=== PATIENT | female | born 1995 ===

== ENCOUNTER 2018-03-26 17:15 | Emergency (ER) | payer OTHER ==
[2018-03-26 17:48] VITALS: BP 127/75; PULSE 74; RESP 18; TEMP 98.2; O2SAT 99
[2018-03-26] MEDS ORDERED: Enoxaparin 40 mg Syringe SC STA (18:03)
--- NOTE | 2018-03-26 18:06 | C.PDOC ---
History Of Present Illness 22 yo female come in for evaluation of left leg pain gradually developed for past month. Pt reports, " pain starts from back of my left ankle and radiating up to back of knee and left hip". Pt reports, pain worse at night time, associated with tingling sensation over Left leg. Otherwise, pt denies known direct trauma or injury, fever, chills, CP, SOB, dyspnea, palpitation, cough, abd. pain, N/V, UTI sx, denies saddle anesthesia, incontinence, denies weakness to Left leg. Pt admits, was seen by PMD last week due to same complaint, received Rx: Flexeril, Naproxen without improvement. Pt admits, takes BCP " for many years". Ambulate to ED for evaluation, not in any apparent distress. Time Seen by Provider: 03/26/18 17:22 Chief Complaint (Nursing): Lower Extremity Problem/Injury History Per: Patient Past Medical History Reviewed: Historical Data, Nursing Documentation, Vital Signs Vital Signs: Last Vital Signs Temp 98.2 F 03/26/18 17:44 Pulse 74 03/26/18 17:44 Resp 18 03/26/18 17:44 BP 127/75 03/26/18 17:44 Pulse Ox 99 03/26/18 17:44 - Medical History PMH: Anxiety Family History: States: Unknown Family Hx - Social History Hx Tobacco Use: No (quit 6 mo ago) Hx Alcohol Use: No Hx Substance Use: No Review Of Systems Except As Marked, All Systems Reviewed And Found Negative. Constitutional: Negative for: Fever, Chills ENT: Negative for: Throat Pain Cardiovascular: Negative for: Chest Pain, Palpitations, Orthopnea, Edema, Light Headedness Respiratory: Negative for: Cough, Shortness of Breath, Wheezing Gastrointestinal: Negative for: Nausea, Vomiting, Abdominal Pain Musculoskeletal: Positive for: Leg Pain Skin: Negative for: Rash, Bruising Neurological: Negative for: Weakness, Numbness, Headache, Dizziness Physical Exam - Physical Exam Appears: Well, Non-toxic, No Acute Distress Skin: Normal Color, Warm, Dry, No Rash, No Ecchymosis Head: Normacephalic Eye(s): bilateral: PERRL Nose: No Flaring, No Discharge Oral Mucosa: Moist, No Drooling Throat: No Erythema Neck: Normal ROM, Trachea Midline, Supple Cardiovascular: Rhythm Regular, No Murmur, No JVD, Other ((-) JVD) Respiratory: No Decreased Breath Sounds, No Accessory Muscle Use, No Stridor, No Wheezing Gastrointestinal/Abdominal: Soft, No Tenderness, No Distention, No Guarding Back: No CVA Tenderness Extremity: Normal ROM (LLE), Tenderness (mild over Left Achilles. No deformity, no skin changes.), Calf Tenderness (Left), Capillary Refill (ls than 2sec to Left foot), No Deformity, No Swelling Neurological/Psych: Oriented x3, Normal Speech, No Normal Motor, No Normal Sensation, No Normal Reflexes ED Course And Treatment O2 Sat by Pulse Oximetry: 99 Pulse Ox Interpretation: Normal Progress Note: On re-eavluation, pt is afebnrile, hemodynamical stable. Non- toxic. Ambulatory in ED with stable gait. PulsOEx 99% RA. ENT: no acute findings. Lungs: CTA B/L, BS equal B/L. CVS: (+)S1S2, reg. (-) murmur. Left LE: mild tenderness over Achilles, (-) Osorio. Mild left calf tenderness, no edema, no palpable cordsm no erythema. FAROM, no neurovascular deficits. NO calf tenderness, no skin changes. Back: (-) CVA tenderness. Neurologicaly intact. Pt has clinical findings c/w diffuse posterior left leg tenderness, (+ ) mild left calf tenderness r/o DVT. Duppler US is note available at [facility] at present time. Pt advised return to ED tomorrow for test. Pt understand and agrees with plan. STable for discharge now. Disposition Counseled Patient/Family Regarding: Studies Performed, Diagnosis, Need For Followup - Disposition Disposition: HOME/ ROUTINE Disposition Time: 18:04 Condition: STABLE Additional Instructions: RETURN TO ED TOMORROW FOR DOPPLER US OF LEFT LEG RULE OUT DVT Instructions: Deep Vein Thrombosis (Blood Clots in the Legs) Forms: [facility] (Georgian), Work Excuse - Clinical Impression Clinical Impression: Cramps of left lower extremity
[2018-03-26] MEDS ORDERED: Enoxaparin 80 mg Syringe ONE (18:18)
== END 2018-03-26 18:27 | disposition home or self-care (01) ==
LOC: C.ER 17:15
DX: R25.2 Cramp and spasm (principal)
CPT/HCPCS: 96372; 99284; J1650

== ENCOUNTER 2018-03-27 08:47 | Emergency (ER) | payer OTHER ==
[2018-03-27 09:00] VITALS: BP 125/84; PULSE 73; RESP 18; TEMP 98.4; O2SAT 98
--- NOTE | 2018-03-27 10:47 | C.PDOC ---
History Of Present Illness 22 y/o female presents to the ED for evaluation of left calf pain for 3 weeks. Patient was seen here last night and instructed to return for Doppler US to rule out DVT. Otherwise she denies any SOB, palpitations, chest pain, numbness, tingling, or other complaints. She reports applying bengay vigorously to the calf, which has only worsened her pain. Time Seen by Provider: 03/27/18 09:20 Chief Complaint (Nursing): Lower Extremity Problem/Injury History Per: Patient History/Exam Limitations: no limitations Onset/Duration Of Symptoms: Days Current Symptoms Are (Timing): Still Present Past Medical History Reviewed: Historical Data, Nursing Documentation, Vital Signs Vital Signs: Last Vital Signs Temp 98.4 F 03/27/18 08:57 Pulse 73 03/27/18 08:57 Resp 18 03/27/18 08:57 BP 125/84 03/27/18 08:57 Pulse Ox 98 03/27/18 10:47 - Medical History PMH: Anxiety, Asthma Family History: States: Unknown Family Hx - Social History Hx Tobacco Use: No (quit 6 mo ago) Hx Alcohol Use: No Hx Substance Use: No - Immunization History Hx Tetanus Toxoid Vaccination: No Hx Influenza Vaccination: Yes Hx Pneumococcal Vaccination: No Review Of Systems Except As Marked, All Systems Reviewed And Found Negative. Constitutional: Negative for: Fever Cardiovascular: Negative for: Chest Pain, Palpitations Respiratory: Negative for: Shortness of Breath Gastrointestinal: Negative for: Nausea, Vomiting Musculoskeletal: Positive for: Leg Pain (left calf) Skin: Negative for: Rash, Lesions Neurological: Negative for: Weakness, Numbness, Incoordination Physical Exam - Physical Exam Appears: Well, Non-toxic, No Acute Distress Skin: Warm, Dry, No Rash Head: Atraumatic, Normacephalic Eye(s): bilateral: Normal Inspection Oral Mucosa: Moist Neck: Normal ROM Chest: Symmetrical, No Deformity, No Tenderness Cardiovascular: Rhythm Regular, No Murmur Respiratory: Normal Breath Sounds, No Rales, No Rhonchi, No Wheezing Extremity: Normal ROM, Calf Tenderness (left), No Deformity, Other (Obese lower extremities bilaterally, symmetrical, no edema, (+) Nirmala's sign on the left) Pulses: Left Dorsalis Pedis: Normal, Right Dorsalis Pedis: Normal Neurological/Psych: Oriented x3, Normal Speech, Normal Cranial Nerves, Normal Motor, Normal Sensation ED Course And Treatment O2 Sat by Pulse Oximetry: 98 (RA) Pulse Ox Interpretation: Normal - Other Rad b/l leg doppler US X-Ray: Read By Radiologist (no DVT's b/l legs) Medical Decision Making Medical Decision Making: Impression: Sent to r/o DVT Plan: * vascular study ordered Informed patient of negative doppler US. Final Impression: muscle strain L calf area no dvt Disposition Doctor Will See Patient In The: Office Counseled Patient/Family Regarding: Studies Performed, Diagnosis, Need For Followup - Disposition Referrals: Emily Valdivia MD [Staff Provider] - Disposition: HOME/ ROUTINE Disposition Time: 10:47 Condition: GOOD Additional Instructions: Doppler US exam today is NEGATIVE for DVT of both legs continue ice packs to the affected leg area 1/2 hour per hour, nothing hot Motrin/Advil 400-600 mg every 6 hours as needed Follow-up w Dr. Valdivia as needed. Instructions: Lower Extremity Muscle Strain Forms: [facility] (Latvian) - POA Present On Arrival: None - Clinical Impression Clinical Impression: Strain of calf muscle - Scribe Statement The provider has reviewed the documentation as recorded by the Scribe (Nataliia Hair) Provider Attestation: All medical record entries made by the Scribe were at my direction and personally dictated by me. I have reviewed the chart and agree that the record accurately reflects my personal performance of the history, physical exam, medical decision making, and the department course for this patient. I have also personally directed, reviewed, and agree with the discharge instructions and disposition.
--- NOTE | 2018-03-28 13:25 | VASCLAB ---
Date of service: 03/27/2018 PROCEDURE: Lower Extremity Venous Duplex Exam. HISTORY: Pain in limb, r/o dvt PRIORS: None. TECHNIQUE: Bilateral common femoral, femoral, popliteal and posterior tibial, peroneal and great saphenous veins were evaluated. Flow was assessed with color Doppler, compressibility, assessment of phasic flow and augmentation response. Report prepared by Darren Murray, NENA, RVT FINDINGS: RIGHT: 1. Common Femoral Vein: 1.1. Compressibility - Fully compressible: Thrombus - None : Flow - Phasic: Augmentation -Normal: Reflux - None. 2. Femoral Vein: 2.1. Compressibility - Fully compressible: Thrombus - None : Flow - Phasic: Augmentation -Normal: Reflux - None. 3. Popliteal Vein: 3.1. Compressibility - Fully compressible: Thrombus - None : Flow - Phasic: Augmentation -Normal: Reflux - None. 4. Posterior Tibial Vein: 4.1. Compressibility - Fully compressible: Thrombus - None: Flow - Phasic: Augmentation -Normal: Reflux - None. 5. Peroneal Vein: 5.1. Compressibility - Fully compressible: Thrombus - None: Flow - Phasic: Augmentation -Normal: Reflux - None. 6. Great Saphenous Vein: 6.1. Compressibility - Fully compressible: Thrombus - None: Flow - Phasic: Augmentation - Normal: Reflux - None. LEFT: 1. Common Femoral Vein: 1.1. Compressibility - Fully compressible: Thrombus - None: Flow - Phasic: Augmentation -Normal: Reflux - None. 2. Femoral Vein: 2.1. Compressibility - Fully compressible: Thrombus - None: Flow - Phasic: Augmentation -Normal: Reflux - None. 3. Popliteal Vein: 3.1. Compressibility - Fully compressible: Thrombus - None : Flow - Phasic: Augmentation -Normal: Reflux - None. 4. Posterior Tibial Vein: 4.1. Compressibility - Fully compressible: Thrombus - None: Flow - Phasic: Augmentation -Normal: Reflux - None. 5. Peroneal Vein: 5.1. Compressibility - Fully compressible: Thrombus - None: Flow - Phasic: Augmentation -Normal: Reflux - None. 6. Great Saphenous Vein: 6.1. Compressibility - Fully compressible: Thrombus - None: Flow - Phasic: Augmentation - Normal: Reflux - None. OTHER FINDINGS: Right: None significant. Left: None significant. IMPRESSION: Right: No evidence of deep or superficial vein thrombosis of the right lower extremity. Normal valve function noted of the right side. Left: No evidence of deep or superficial vein thrombosis of the left lower extremity. Normal valve function noted of the left side.
== END 2018-03-27 10:53 | disposition home or self-care (01) ==
LOC: C.ER 08:47
DX: S86.912A Strain of unspecified muscle(s) and tendon(s) at lower leg level, left leg, initial encounter (principal); X58.XXXA Exposure to other specified factors, initial encounter

== ENCOUNTER 2018-04-24 21:27 | Emergency (ER) | payer OTHER ==
[2018-04-24] MEDS ORDERED: Sodium Chloride 0.9% 1,000 ML IV ONE (21:54)
--- NOTE | 2018-04-24 22:00 | C.PDOC ---
History Of Present Illness 22 y/o female presents to the ED for evaluation of fever for 4 days. Patient notes she started to not feel well Sunday night. Sunday she started developing diarrhea and has been having a couple of episodes of loose stool each day. Today it became a squaxin green color. No nausea or vomiting. Patient reports a decreased appetite though she is able to eat and drink. Also reports cough. Denies any associated dysuria, incontinence, hematuria, or URI symptoms. Her daughter has an ear infection but otherwise no sick contacts. No recent travel. No recent antibiotic use. Time Seen by Provider: 04/24/18 21:46 Chief Complaint (Nursing): Fever History Per: Patient History/Exam Limitations: no limitations Onset/Duration Of Symptoms: Days Current Symptoms Are (Timing): Still Present Sick Contacts (Context): None Past Medical History Reviewed: Historical Data, Nursing Documentation, Vital Signs Vital Signs: Last Vital Signs Temp 101.5 F H 04/24/18 21:39 Pulse 99 H 04/24/18 21:39 Resp 20 04/24/18 21:39 BP 138/93 H 04/24/18 21:39 Pulse Ox 97 04/24/18 22:01 - Medical History PMH: Anxiety, Asthma Family History: States: Unknown Family Hx - Social History Hx Tobacco Use: No (quit 6 mo ago) Hx Alcohol Use: No Hx Substance Use: No - Immunization History Hx Tetanus Toxoid Vaccination: No Hx Influenza Vaccination: Yes Hx Pneumococcal Vaccination: No Review Of Systems Constitutional: Negative for: Fever, Chills ENT: Negative for: Ear Pain, Nose Congestion, Throat Pain Cardiovascular: Negative for: Chest Pain Respiratory: Positive for: Cough. Negative for: Shortness of Breath, Sputum Gastrointestinal: Positive for: Diarrhea, Other (Decreased appetite). Negative for: Nausea, Vomiting Genitourinary: Negative for: Dysuria, Frequency, Incontinence, Hematuria Neurological: Negative for: Weakness, Numbness, Headache Physical Exam - Physical Exam Appears: Non-toxic, No Acute Distress Skin: Normal Color, Warm, Dry Head: Atraumatic, Normacephalic Eye(s): bilateral: Normal Inspection, PERRL, EOMI Ear(s): Bilateral: Normal Nose: Normal Oral Mucosa: Moist Throat: Normal, No Erythema, No Exudate Neck: Normal ROM, Supple Chest: Symmetrical Cardiovascular: Rhythm Regular, No Murmur Respiratory: Normal Breath Sounds (clear bilaterally to auscultation), No Rales , No Rhonchi, No Wheezing, Other (Mild cough noted) Gastrointestinal/Abdominal: Soft, No Tenderness, No Distention Back: Normal Inspection, No CVA Tenderness Extremity: Bilateral: Atraumatic, Normal Color And Temperature, Normal ROM Neurological/Psych: Oriented x3, Normal Speech ED Course And Treatment - Laboratory Results Result Diagrams: 04/24/18 22:27 04/24/18 22:27 Lab Interpretation: Normal O2 Sat by Pulse Oximetry: 97 (RA) Pulse Ox Interpretation: Normal - Radiology CXR: Interpreted by Me CXR Interpretation: Yes: No Acute Disease Progress Note: Blood work and urine sent. Chest x-ray obtained and reviewed. Patient started on IVF hydration and given 600mg PO Motrin. Reevaluation Time: 23:04 Reassessment Condition: Improved Disposition Counseled Patient/Family Regarding: Studies Performed, Diagnosis, Need For Followup - Disposition Referrals: Emily Valdivia MD [Staff Provider] - Disposition: HOME/ ROUTINE Disposition Time: 23:05 Condition: IMPROVED Additional Instructions: Encourage fluids and keep your diet bland. Take a probiotic daily. Instructions: Diarrhea in Adolescents and Adults, [place] Diet, Fever, Adult (DC) Forms: [facility] (Cymro) - Clinical Impression Clinical Impression: Fever, Diarrhea - Scribe Statement The provider has reviewed the documentation as recorded by the Gemini Hair Provider Attestation: All medical record entries made by the Gildardoibe were at my direction and personally dictated by me. I have reviewed the chart and agree that the record accurately reflects my personal performance of the history, physical exam, medical decision making, and the department course for this patient. I have also personally directed, reviewed, and agree with the discharge instructions and disposition.
[2018-04-24 22:22] LABS: HCG,QUALITATIVE URINE NEGATIVE (NEGATIVE)
[2018-04-24] MEDS ORDERED: Sodium Chloride 0.9% 1,000 ML ONE (22:24)
[2018-04-24 22:26] LABS: SQUAMOUS EPITHIAL 16 /hpf (0-5); URINE BILIRUBIN NEGATIVE (NEGATIVE); URINE BLOOD 2+ (NEGATIVE); URINE CLARITY Hazy (Clear); URINE COLOR Yellow (YELLOW); URINE GLUCOSE (UA) NORMAL (Normal); URINE LEUKOCYTE ESTERASE TRACE Leu/uL (Negative); URINE PROTEIN NEGATIVE (NEGATIVE)
[2018-04-24 22:31] LABS: BASO % 0.3 % (0.0-2.0); EOS # 0.2 K/uL (0.0-0.7); EOS % 1.8 % (0.0-4.0); HEMOGLOBIN 14.2 g/dL (11.0-16.0); LYMPH % 23.8 % (20.0-40.0); MEAN CELL VOLUME 89.4 fL (81.0-99.0); MEAN CORPUSCULAR HGB CONC 34.6 g/dL (33.0-37.0); MEAN PLATELET VOLUME 7.1 fL (7.2-11.7); MONO # 0.6 K/uL (0.0-0.8); MONO % 7.4 % (0.0-10.0); NEUT # 5.7 K/uL (1.8-7.0); NEUT % 66.7 % (50.0-75.0); NRBC % 0.1 % (0.0-2.0); RBC 4.6 Mil/uL (3.80-5.20); RED CELL DISTRIBUTION WIDTH 13.4 % (11.5-14.5); WHITE BLOOD COUNT 8.5 K/uL (4.8-10.8)
[2018-04-24 22:54] LABS: ALB/GLOB RATIO 1.3 (1.0-2.1); ALBUMIN 4.5 g/dL (3.5-5.0); ALT/SGPT 24 U/L (9-52); AST/SGOT 21 U/L (14-36); BLOOD UREA NITROGEN 15 mg/dL (7-17); GFR NON-AFRICAN AMERICAN > 60
[2018-04-24] MEDS ORDERED: Albuterol 0.083% Inhal Sol (2.5 mg/3 mL) UD INH ONE (23:31)
[2018-04-24] MEDS ORDERED: Albuterol 0.083% Inhal Sol (2.5 mg/3 mL) UD ONE (23:37)
[2018-04-24 23:40] VITALS: BP 109/70; PULSE 92; RESP 22; TEMP 99.2; O2SAT 99
--- NOTE | 2018-04-25 08:30 | RAD ---
Chest x-ray two views History: Shortness of breath. Comparison: None available. Findings: Patchy increased markings at the right lung base laterally. Clinical correlation. Bibasilar breast and nipple shadows. Heart size within normal limits. Degenerative changes in the spine. Impression: Patchy increased markings at the lateral aspect of the right lung base which may represent subtle infiltrate. Clinical correlation.
== END 2018-04-25 00:09 | disposition home or self-care (01) ==
LOC: C.ER 21:27
DX: R50.9 Fever, unspecified (principal); R19.7 Diarrhea, unspecified
CPT/HCPCS: 71046; 80053; 81001; 84703; 85025; 87804; 96360; 99285; J7030

== ENCOUNTER 2018-04-27 17:03 | Inpatient (IN) | payer OTHER ==
[2018-04-27] MEDS ORDERED: Sodium Chloride 0.9% 1,000 ML IV ONE (17:48)
[2018-04-27] MEDS ORDERED: Albuterol 0.083% Inhal Sol (2.5 mg/3 mL) UD IH STA (17:51)
[2018-04-27 18:08] LABS: BASO % 0.4 % (0.0-2.0); HEMOGLOBIN 15.3 g/dL (11.0-16.0); LYMPH # 1.5 K/uL (1.0-4.3); LYMPH % 13.6 % (20.0-40.0); MEAN CELL VOLUME 89.9 fL (81.0-99.0); MEAN CORPUSCULAR HEMOGLOBIN 31.5 pg (27.0-31.0); MEAN CORPUSCULAR HGB CONC 35.1 g/dL (33.0-37.0); MEAN PLATELET VOLUME 7.4 fL (7.2-11.7); MONO # 0.5 K/uL (0.0-0.8); MONO % 4.7 % (0.0-10.0); NEUT % 81.3 % (50.0-75.0); NRBC % 0.1 % (0.0-2.0); RBC 4.84 Mil/uL (3.80-5.20); RED CELL DISTRIBUTION WIDTH 13.1 % (11.5-14.5); WHITE BLOOD COUNT 11.1 K/uL (4.8-10.8)
[2018-04-27 18:15] LABS: VENOUS BLOOD GAS BASE EXCESS -10.3 mmol/L (0.0-2.0); VENOUS BLOOD GAS PCO2 37 mmHg (40-60); VENOUS BLOOD GAS PO2 42 mm/Hg (30-55); VENOUS BLOOD PH 7.25 (7.32-7.43)
--- NOTE | 2018-04-27 18:18 | C.PDOC ---
History Of Present Illness Patient presents to ED c/o productive cough, wheezing, SOB as well as epigastric abdominal pain, nausea and vomiting since Sunday. Patient was seen in the ER on 04/24, diagnosed with R sided pneumonia and given Rx for Levaquin. Patient states she has been unable to keep antibiotics down, and symptoms have continued. PMHx of asthma Time Seen by Provider: 04/27/18 17:36 Chief Complaint (Nursing): Shortness Of Breath History Per: Patient History/Exam Limitations: no limitations Onset/Duration Of Symptoms: Days (6 ) Current Symptoms Are (Timing): Worse Initiating Event: Upper Respiratory Illness Current Respiratory Medications: See Home Med List Severity: Moderate Past Medical History Reviewed: Historical Data, Nursing Documentation, Vital Signs Vital Signs: Last Vital Signs Temp 101.2 F H 04/27/18 17:26 Pulse 132 H 04/27/18 17:26 Resp 28 H 04/27/18 17:26 BP 141/98 H 04/27/18 17:26 Pulse Ox 96 04/27/18 18:33 - Medical History PMH: Anxiety, Asthma Family History: States: No Known Family Hx - Social History Hx Tobacco Use: No (quit 6 mo ago) Hx Alcohol Use: Yes Hx Substance Use: No - Immunization History Hx Tetanus Toxoid Vaccination: No Hx Influenza Vaccination: No Hx Pneumococcal Vaccination: No Review Of Systems Constitutional: Positive for: Fever Cardiovascular: Negative for: Chest Pain, Palpitations Respiratory: Positive for: Cough, Shortness of Breath, Wheezing Gastrointestinal: Positive for: Nausea, Vomiting, Abdominal Pain. Negative for : Diarrhea Genitourinary: Negative for: Dysuria, Hematuria Skin: Negative for: Rash Physical Exam - Physical Exam Appears: Non-toxic, In Acute Distress (in moderate discomfort ), Other ( coughing intermittently ) Skin: Normal Color, Warm, Dry Eye(s): bilateral: Normal Inspection Oral Mucosa: Moist Cardiovascular: Rhythm Regular (tachycardic ), No Murmur Respiratory: Accessory Muscle Use (mild), No Rales, Rhonchi (right lower lobe), Wheezing (scant expiratory wheezing) Gastrointestinal/Abdominal: Bowel Sounds, Soft, Tenderness (epigastric mild TTP , (-) McBurney's), No Guarding, No Rebound Extremity: Normal ROM, No Pedal Edema, No Calf Tenderness Neurological/Psych: Oriented x3 ED Course And Treatment - Laboratory Results Result Diagrams: 04/27/18 18:05 04/27/18 18:05 O2 Sat by Pulse Oximetry: 96 Progress Note: Blood work, UA, UPreg, CXR ordered and reviewed. Patient given IV NS bolus, IV zofran, PO tylenol, albuterol neb. 6:45pm- Patient still having cough, fever and vomiting, (+) epigastric abd pain. Blood work, CXR unremarkable. Patient vomited up Tylenol. Patient given IV toradol - will order CT chest/abd/pelvis. Disposition - Disposition Disposition Time: 19:00 Condition: STABLE Forms: [facility] (Belarusian) - Clinical Impression Clinical Impression: Fever, Nausea & vomiting, Cough Physician Patient Turnover Patient Signed Over To: Fidencio Das Handoff Comments: reassessment, CT results
[2018-04-27 18:20] LABS: ALB/GLOB RATIO 1.2 (1.0-2.1); ALBUMIN 4.4 g/dL (3.5-5.0); ALT/SGPT 25 U/L (9-52); AST/SGOT 19 U/L (14-36); BLOOD UREA NITROGEN 12 mg/dL (7-17); CALCIUM 9.3 mg/dl (8.6-10.4); GFR NON-AFRICAN AMERICAN > 60; LIPASE 66 U/L (23-300)
[2018-04-27] MEDS ORDERED: Sodium Chloride 0.9% 1,000 ML ONE (18:20)
[2018-04-27] MEDS ORDERED: Potassium Chloride 20 mEq ER Tab PO STA (18:22)
[2018-04-27 18:35] LABS: HCG,QUALITATIVE URINE NEGATIVE (NEGATIVE)
[2018-04-27] MEDS ORDERED: Potassium Chloride 20 mEq ER Tab PO ONE (18:36)
[2018-04-27 18:40] LABS: SQUAMOUS EPITHIAL 5 /hpf (0-5); URINE BACTERIA OCC (<OCC); URINE BILIRUBIN NEGATIVE (NEGATIVE); URINE BLOOD 1+ (NEGATIVE); URINE CLARITY Hazy (Clear); URINE COLOR Yellow (YELLOW); URINE GLUCOSE (UA) NORMAL (Normal); URINE LEUKOCYTE ESTERASE NEG Leu/uL (Negative); URINE PROTEIN 1+ mg/dL (NEGATIVE); URINE UROBILINOGEN NORMAL mg/dL (0.2-1.0)
[2018-04-27] MEDS ORDERED: cefTRIAXone IV 1 gm in Dextros 50 ML IVPB ONE (20:38)
[2018-04-27] MEDS ORDERED: Azithromycin 500mg/250ML NS 500 MG/250 ML BAG IVPB ONE (20:56)
[2018-04-27] MEDS ORDERED: Azithromycin 500 MG in Sodium Chloride 0.9% 250 ML IVPB ONE (21:00)
[2018-04-27 21:15] LABS: ABG ALLEN TEST POS; ARTERIAL BLOOD GAS HCO3 21.9 mmol/L (21-28); ARTERIAL BLOOD GAS HEMOGLOBIN 12.5 g/dL (11.7-17.4); ARTERIAL BLOOD GAS O2 SAT 98.3 % (95-98); ARTERIAL BLOOD GAS PCO2 28 mm/Hg (35-45); ARTERIAL BLOOD GAS PH 7.44 (7.35-7.45); ARTERIAL BLOOD GAS PO2 94 mm/Hg (80-100); ARTERIAL BLOOD GAS TCO2 19.9 mmol/L (22-28)
--- NOTE | 2018-04-27 23:49 | CP.PCM.HP ---
History of Present Illness - History of Present Illness History of Present Illness: 82-year-old female with PMH of anxiety, asthma comes to ED with complaints of productive cough since 5 days. Cough is associated with wheezing, SOB, epigastric pain, nausea and vomiting. Patient was seen in ER on 04/24 where she was diagnosed with right-sided pneumonia and given Levaquin. Admits she has been unable to keep antibiotics down and symptoms have continued. Past Patient History - Infectious Disease Hx of Infectious Diseases: None - Past Medical History & Family History Past Medical History?: Yes - Past Social History Smoking Status: Never Smoked - CARDIAC Hx Cardiac Disorders: No - PULMONARY Hx Respiratory Disorders: Yes Hx Asthma: Yes - NEUROLOGICAL Hx Neurological Disorder: No - HEENT Hx HEENT Problems: No - RENAL Hx Chronic Kidney Disease: No - ENDOCRINE/METABOLIC Hx Endocrine Disorders: No - HEMATOLOGICAL/ONCOLOGICAL Hx Blood Disorders: No - INTEGUMENTARY Hx Dermatological Problems: No - MUSCULOSKELETAL/RHEUMATOLOGICAL Hx Musculoskeletal Disorders: No - GASTROINTESTINAL Hx Gastrointestinal Disorders: No - GENITOURINARY/GYNECOLOGICAL Hx Genitourinary Disorders: No - PSYCHIATRIC Hx Psychophysiologic Disorder: Yes Hx Anxiety: Yes Hx Substance Use: No - SURGICAL HISTORY Hx Surgeries: Yes Hx Section: Yes Hx Dilation and Curettage: Yes - ANESTHESIA Hx Anesthesia: Yes Hx Anesthesia Reactions: No Hx Malignant Hyperthermia: No Meds Home Medications: Home Medication List Medication Instructions Recorded Confirmed Type Albuterol/Ipratropium [Duoneb 3 3 ml INH RQ6 30 Days neb 05/01/18 Rx mg/0.5 mg (3 ml) UD] levoFLOXacin [Levaquin] 500 mg PO DAILY #10 tab 05/01/18 Rx Allergies/Adverse Reactions: Allergies Allergy/AdvReac Type Severity Reaction Status Date / Time latex Allergy Verified 03/26/18 17:48 ANIMAL FUR Allergy Uncoded 03/26/18 17:48 DUST Allergy Uncoded 03/26/18 17:48 POLLEN Allergy Uncoded 03/26/18 17:48 Results - Vital Signs Recent Vital Signs: Last Vital Signs Temp 98.0 F 04/27/18 22:20 Pulse 84 04/27/18 22:20 Resp 20 04/27/18 22:20 BP 120/71 04/27/18 22:20 Pulse Ox 97 04/27/18 22:20 - Labs Result Diagrams: 05/01/18 07:34 05/01/18 07:13 Labs: Laboratory Results - last 24 hr 04/27/18 04/27/18 04/27/18 18:05 18:05 18:08 WBC 11.1 H RBC 4.84 Hgb 15.3 Hct 43.5 MCV 89.9 MCH 31.5 H MCHC 35.1 RDW 13.1 Plt Count 260 MPV 7.4 Neut % (Auto) 81.3 H Lymph % (Auto) 13.6 L [place] % (Auto) 4.7 Eos % (Auto) 0.0 Baso % (Auto) 0.4 Neut # (Auto) 9.0 H Lymph # (Auto) 1.5 [place] # (Auto) 0.5 Eos # (Auto) 0.0 Baso # (Auto) 0.0 Puncture Site pCO2 pO2 42 HCO3 ABG pH ABG Total CO2 ABG O2 Saturation ABG Base Excess ABG Hemoglobin ABG Carboxyhemoglobin POC ABG HHb (Measured) ABG Methemoglobin Randall Test VBG pH 7.25 L VBG pCO2 37 L VBG HCO3 16.1 VBG Total CO2 17.3 L VBG O2 Sat (Calc) 75.4 H VBG Base Excess -10.3 L VBG Potassium 19.6 H* A-a O2 Difference Respiratory Index Hgb O2 Saturation Glucose 80 Lactate 1.1 FiO2 Crit Value Called To Suzanne sheet metal pattern cutter Crit Value Called By Troy Crit Value Read Back Y Blood Gas Notified Time 1814 Sodium 138 133.0 Potassium 3.1 L Chloride 100 107.0 Carbon Dioxide 20 L Anion Gap 20 BUN 12 Creatinine 0.7 Est GFR ( Amer) > 60 Est GFR (Non-Af Amer) > 60 Random Glucose 104 Calcium 9.3 Total Bilirubin 0.7 AST 19 ALT 25 Alkaline Phosphatase 92 Total Protein 8.3 Albumin 4.4 Globulin 3.8 Albumin/Globulin Ratio 1.2 Lipase 66 Venous Blood Potassium 19.6 H* Urine Color Urine Clarity Urine pH Ur Specific [place] Urine Protein Urine Glucose (UA) Urine Ketones Urine Blood Urine Nitrate Urine Bilirubin Urine Urobilinogen Ur Leukocyte Esterase Urine WBC (Auto) Urine RBC (Auto) Ur Squamous Epith Cells Urine Bacteria Urine HCG, Qual Influenza Typ A,B (EIA) 04/27/18 04/27/18 04/27/18 18:32 19:02 21:13 WBC RBC Hgb Hct MCV MCH MCHC RDW Plt Count MPV Neut % (Auto) Lymph % (Auto) [place] % (Auto) Eos % (Auto) Baso % (Auto) Neut # (Auto) Lymph # (Auto) [place] # (Auto) Eos # (Auto) Baso # (Auto) Puncture Site Lba pCO2 28 L pO2 94 HCO3 21.9 ABG pH 7.44 ABG Total CO2 19.9 L ABG O2 Saturation 98.3 H ABG Base Excess -3.9 L ABG Hemoglobin 12.5 ABG Carboxyhemoglobin 1.2 POC ABG HHb (Measured) 1.7 ABG Methemoglobin 0.9 Randall Test Pos VBG pH VBG pCO2 VBG HCO3 VBG Total CO2 VBG O2 Sat (Calc) VBG Base Excess VBG Potassium A-a O2 Difference 21.0 Respiratory Index 0.2 Hgb O2 Saturation 96.3 Glucose Lactate FiO2 21.0 Crit Value Called To Crit Value Called By Crit Value Read Back Blood Gas Notified Time Sodium Potassium Chloride Carbon Dioxide Anion Gap BUN Creatinine Est GFR ( Amer) Est GFR (Non-Af Amer) Random Glucose Calcium Total Bilirubin AST ALT Alkaline Phosphatase Total Protein Albumin Globulin Albumin/Globulin Ratio Lipase Venous Blood Potassium Urine Color Yellow Urine Clarity Hazy Urine pH 5.0 Ur Specific [place] 1.029 Urine Protein 1+ H Urine Glucose (UA) Normal Urine Ketones 2+ H Urine Blood 1+ H Urine Nitrate Negative Urine Bilirubin Negative Urine Urobilinogen Normal Ur Leukocyte Esterase Neg Urine WBC (Auto) 3 Urine RBC (Auto) 13 H Ur Squamous Epith Cells 5 Urine Bacteria Occ H Urine HCG, Qual Negative Influenza Typ A,B (EIA) Negative for flu a/b
[2018-04-28] MEDS ORDERED: Potassium Chloride 20 mEq ER Tab PO ONE (00:20)
[2018-04-28] MEDS: Albuterol-Ipratrop 3 mg / 0.5 (3 ml) UD INH SCH ×4 (01:16→19:20)
[2018-04-28] MEDS ORDERED: Potassium Chloride 20 mEq/15 ml LIQ UD PO ONE (05:00)
--- NOTE | 2018-04-28 08:57 | RAD ---
Date of service: 04/27/2018 PROCEDURE: CHEST RADIOGRAPH, 1 VIEW HISTORY: Fever, cough COMPARISON: Comparison chest 11/22/2017. FINDINGS: LUNGS: Poor inspiration with low lung volumes, crowded bronchovascular markings and mild atelectasis. The interstitial markings are also increased and coarsened ; rule out sequela of reactive/inflammatory airway disease or viral illness. PLEURA: No pneumothorax or pleural fluid seen. CARDIOVASCULAR: Normal. OSSEOUS STRUCTURES: No significant abnormalities. VISUALIZED UPPER ABDOMEN: Normal. OTHER FINDINGS: None. IMPRESSION: Poor inspiration with low lung volumes, crowded bronchovascular markings and mild atelectasis. The interstitial markings are also increased and coarsened ; rule out sequela of reactive/inflammatory airway disease or viral illness.
[2018-04-28] MEDS: Enoxaparin 40 mg Syringe SC SCH (09:35)
[2018-04-28] MEDS: Pantoprazole 40 mg EC Tab PO SCH (09:35)
[2018-04-28 11:41] LABS: HEMOGLOBIN 13.8 g/dL (11.0-16.0); MEAN CELL VOLUME 89.9 fL (81.0-99.0); MEAN CORPUSCULAR HEMOGLOBIN 31.5 pg (27.0-31.0); MEAN PLATELET VOLUME 7.8 fL (7.2-11.7); RBC 4.37 Mil/uL (3.80-5.20); RED CELL DISTRIBUTION WIDTH 13.4 % (11.5-14.5)
[2018-04-28 11:43] LABS: WHITE BLOOD COUNT 5.5 K/uL (4.8-10.8)
[2018-04-28 12:02] LABS: ALB/GLOB RATIO 1.1 (1.0-2.1); ALBUMIN 3.6 g/dL (3.5-5.0); ALT/SGPT 21 U/L (9-52); AST/SGOT 19 U/L (14-36); BLOOD UREA NITROGEN 9 mg/dL (7-17); CALCIUM 8.9 mg/dl (8.6-10.4); GFR NON-AFRICAN AMERICAN > 60
[2018-04-28] MEDS: Azithromycin 500 MG in Sodium Chloride 0.9% 250 ML IVPB SCH (12:09)
--- NOTE | 2018-04-28 16:58 | CP.PCM.CON ---
<Enrique Danielle - Last Filed: 04/28/18 16:53> History of Present Illness - History of Present Illness History of Present Illness: GI Fellow PGY4, consult note. Lauren Potts is a very pleasant 22yo F with history of asthma, GERD who presents with fever, vomiting, diarrhea. Patient last felt well 1 week ago when she developed a fever after a family BBQ. She does not remember eating any questionable food, and no other people developed similar symptoms that she knows of. She has no recent travel or Abx use. She had multiple episode of non- bloody vomiting and diarrhea. She notes her diarrhea turned green. She has been unable to keep food down. She had abdominal pain 1 week ago, but none now. Today her symptoms are improving, only one episode of emesis after trying liquid potassium. Last BM was yesterday and it was small. PMHx - see above PSHx - 5yrs ago. FMHx - unremarkable SocHx - Occasional etoh use. Denies smoking. 12pt ROS completed and neg except for above. Past Patient History - Infectious Disease Hx of Infectious Diseases: None - Past Medical History & Family History Past Medical History?: Yes - Past Social History Smoking Status: Never Smoked - CARDIAC Hx Cardiac Disorders: No - PULMONARY Hx Respiratory Disorders: Yes Hx Asthma: Yes - NEUROLOGICAL Hx Neurological Disorder: No - HEENT Hx HEENT Problems: No - RENAL Hx Chronic Kidney Disease: No - ENDOCRINE/METABOLIC Hx Endocrine Disorders: No - HEMATOLOGICAL/ONCOLOGICAL Hx Blood Disorders: No - INTEGUMENTARY Hx Dermatological Problems: No - MUSCULOSKELETAL/RHEUMATOLOGICAL Hx Musculoskeletal Disorders: No - GASTROINTESTINAL Hx Gastrointestinal Disorders: No - GENITOURINARY/GYNECOLOGICAL Hx Genitourinary Disorders: No - PSYCHIATRIC Hx Psychophysiologic Disorder: Yes Hx Anxiety: Yes Hx Substance Use: No - SURGICAL HISTORY Hx Surgeries: Yes Hx Section: Yes Hx Dilation and Curettage: Yes - ANESTHESIA Hx Anesthesia: Yes Hx Anesthesia Reactions: No Hx Malignant Hyperthermia: No Meds Allergies/Adverse Reactions: Allergies Allergy/AdvReac Type Severity Reaction Status Date / Time latex Allergy Verified 03/26/18 17:48 ANIMAL FUR Allergy Uncoded 03/26/18 17:48 DUST Allergy Uncoded 03/26/18 17:48 POLLEN Allergy Uncoded 03/26/18 17:48 - Medications Medications: Current Medications Albuterol/Ipratropium (Duoneb 3 Mg/0.5 Mg (3 Ml) Ud) 3 ml INH RQ6 [facility] Last Admin: 04/28/18 13:51 Dose: 3 ml Enoxaparin Sodium (Lovenox) 40 mg SC DAILY [facility] Last Admin: 04/28/18 09:35 Dose: 40 mg Azithromycin 500 mg/ Sodium (Chloride) 250 mls @ 250 mls/hr IVPB DAILY@1300 [facility] PRN Reason: Protocol Last Admin: 04/28/18 12:09 Dose: 250 mls/hr Ceftriaxone Sodium 1 gm/ (Sodium Chloride) 100 mls @ 100 mls/hr IVPB DAILY@ 0700 [facility] PRN Reason: Protocol Last Admin: 04/28/18 06:10 Dose: 100 mls/hr Ketorolac Tromethamine (Toradol) 15 mg IVP Q8 PRN PRN Reason: Pain, moderate (4-7) Ondansetron HCl (Zofran Inj) 4 mg IVP Q6 PRN PRN Reason: Nausea/Vomiting Pantoprazole Sodium (Protonix Ec Tab) 40 mg PO DAILY [facility] Last Admin: 04/28/18 09:35 Dose: 40 mg Pneumococcal Polyvalent Vaccine (Pneumovax 23 Vaccine) 0.5 ml IM .ONCE ONE Stop: 04/29/18 10:01 Physical Exam - Constitutional Appears: Well, Non-toxic, No Acute Distress - Head Exam Head Exam: NORMAL INSPECTION - Eye Exam Eye Exam: Normal appearance - ENT Exam ENT Exam: Mucous Membranes Moist - Respiratory Exam Respiratory Exam: Clear to Auscultation Bilateral, Wheezes, NORMAL BREATHING PATTERN. absent: Respiratory Distress - Cardiovascular Exam Cardiovascular Exam: REGULAR RHYTHM, +S1, +S2 - GI/Abdominal Exam GI & Abdominal Exam: Normal Bowel Sounds, Soft. absent: Organomegaly, Tenderness - Rectal Exam Rectal Exam: Deferred - Extremities Exam Extremities exam: Positive for: normal inspection - Neurological Exam Neurological exam: Alert, CN II-XII Intact, Oriented x3 - Psychiatric Exam Psychiatric exam: Normal Affect, Normal Mood - Skin Skin Exam: Dry, Normal Color Results - Vital Signs Recent Vital Signs: Last Vital Signs Temp 98.0 F 04/28/18 15:28 Pulse 75 04/28/18 15:28 Resp 20 04/28/18 15:28 BP 113/69 04/28/18 15:28 Pulse Ox 94 L 09/02/18 15:28 - Labs Result Diagrams: 04/28/18 11:36 04/28/18 11:30 Labs: Laboratory Results - last 24 hr 04/27/18 04/27/18 04/27/18 18:05 18:05 18:08 WBC 11.1 H RBC 4.84 Hgb 15.3 Hct 43.5 MCV 89.9 MCH 31.5 H MCHC 35.1 RDW 13.1 Plt Count 260 MPV 7.4 Neut % (Auto) 81.3 H Lymph % (Auto) 13.6 L Marion % (Auto) 4.7 Eos % (Auto) 0.0 Baso % (Auto) 0.4 Neut # (Auto) 9.0 H Lymph # (Auto) 1.5 Marion # (Auto) 0.5 Eos # (Auto) 0.0 Baso # (Auto) 0.0 Puncture Site pCO2 pO2 42 HCO3 ABG pH ABG Total CO2 ABG O2 Saturation ABG Base Excess ABG Hemoglobin ABG Carboxyhemoglobin POC ABG HHb (Measured) ABG Methemoglobin Randall Test VBG pH 7.25 L VBG pCO2 37 L VBG HCO3 16.1 VBG Total CO2 17.3 L VBG O2 Sat (Calc) 75.4 H VBG Base Excess -10.3 L VBG Potassium 19.6 H* A-a O2 Difference Respiratory Index Hgb O2 Saturation Glucose 80 Lactate 1.1 FiO2 Crit Value Called To Suzanne returning officer Crit Value Called By Troy Crit Value Read Back Y Blood Gas Notified Time 1815 Sodium 138 133.0 Potassium 3.1 L Chloride 100 107.0 Carbon Dioxide 20 L Anion Gap 20 BUN 12 Creatinine 0.7 Est GFR ( Amer) > 60 Est GFR (Non-Af Amer) > 60 Random Glucose 104 Calcium 9.3 Total Bilirubin 0.7 AST 19 ALT 25 Alkaline Phosphatase 92 Total Protein 8.3 Albumin 4.4 Globulin 3.8 Albumin/Globulin Ratio 1.2 Lipase 66 Venous Blood Potassium 19.6 H* Urine Color Urine Clarity Urine pH Ur Specific [place] Urine Protein Urine Glucose (UA) Urine Ketones Urine Blood Urine Nitrate Urine Bilirubin Urine Urobilinogen Ur Leukocyte Esterase Urine WBC (Auto) Urine RBC (Auto) Ur Squamous Epith Cells Urine Bacteria Urine HCG, Qual Influenza Typ A,B (EIA) 04/27/18 04/27/18 04/27/18 18:32 19:02 21:13 WBC RBC Hgb Hct MCV MCH MCHC RDW Plt Count MPV Neut % (Auto) Lymph % (Auto) Marion % (Auto) Eos % (Auto) Baso % (Auto) Neut # (Auto) Lymph # (Auto) Marion # (Auto) Eos # (Auto) Baso # (Auto) Puncture Site Lba pCO2 28 L pO2 94 HCO3 21.9 ABG pH 7.44 ABG Total CO2 19.9 L ABG O2 Saturation 98.3 H ABG Base Excess -3.9 L ABG Hemoglobin 12.5 ABG Carboxyhemoglobin 1.2 POC ABG HHb (Measured) 1.7 ABG Methemoglobin 0.9 Randall Test Pos VBG pH VBG pCO2 VBG HCO3 VBG Total CO2 VBG O2 Sat (Calc) VBG Base Excess VBG Potassium A-a O2 Difference 21.0 Respiratory Index 0.2 Hgb O2 Saturation 96.3 Glucose Lactate FiO2 21.0 Crit Value Called To Crit Value Called By Crit Value Read Back Blood Gas Notified Time Sodium Potassium Chloride Carbon Dioxide Anion Gap BUN Creatinine Est GFR ( Amer) Est GFR (Non-Af Amer) Random Glucose Calcium Total Bilirubin AST ALT Alkaline Phosphatase Total Protein Albumin Globulin Albumin/Globulin Ratio Lipase Venous Blood Potassium Urine Color Yellow Urine Clarity Hazy Urine pH 5.0 Ur Specific [place] 1.029 Urine Protein 1+ H Urine Glucose (UA) Normal Urine Ketones 2+ H Urine Blood 1+ H Urine Nitrate Negative Urine Bilirubin Negative Urine Urobilinogen Normal Ur Leukocyte Esterase Neg Urine WBC (Auto) 3 Urine RBC (Auto) 13 H Ur Squamous Epith Cells 5 Urine Bacteria Occ H Urine HCG, Qual Negative Influenza Typ A,B (EIA) Negative for flu a/b 04/28/18 04/28/18 11:30 11:36 WBC 5.5 D RBC 4.37 Hgb 13.8 Hct 39.3 MCV 89.9 MCH 31.5 H MCHC 35.0 RDW 13.4 Plt Count 240 MPV 7.8 Neut % (Auto) Lymph % (Auto) Marion % (Auto) Eos % (Auto) Baso % (Auto) Neut # (Auto) Lymph # (Auto) Marion # (Auto) Eos # (Auto) Baso # (Auto) Puncture Site pCO2 pO2 HCO3 ABG pH ABG Total CO2 ABG O2 Saturation ABG Base Excess ABG Hemoglobin ABG Carboxyhemoglobin POC ABG HHb (Measured) ABG Methemoglobin Randall Test VBG pH VBG pCO2 VBG HCO3 VBG Total CO2 VBG O2 Sat (Calc) VBG Base Excess VBG Potassium A-a O2 Difference Respiratory Index Hgb O2 Saturation Glucose Lactate FiO2 Crit Value Called To Crit Value Called By Crit Value Read Back Blood Gas Notified Time Sodium 143 Potassium 4.3 Chloride 106 Carbon Dioxide 26 Anion Gap 15 BUN 9 Creatinine 0.6 L Est GFR ( Amer) > 60 Est GFR (Non-Af Amer) > 60 Random Glucose 111 H Calcium 8.9 Total Bilirubin 0.4 AST 19 ALT 21 Alkaline Phosphatase 70 Total Protein 7.1 Albumin 3.6 Globulin 3.4 Albumin/Globulin Ratio 1.1 Lipase Venous Blood Potassium Urine Color Urine Clarity Urine pH Ur Specific [place] Urine Protein Urine Glucose (UA) Urine Ketones Urine Blood Urine Nitrate Urine Bilirubin Urine Urobilinogen Ur Leukocyte Esterase Urine WBC (Auto) Urine RBC (Auto) Ur Squamous Epith Cells Urine Bacteria Urine HCG, Qual Influenza Typ A,B (EIA) Assessment & Plan - Assessment and Plan (Free Text) Assessment: 22F with acute onset of fever, diarrhea, vomiting consistent with gastroenteritis #Gastroenteritis - bacterial vs viral #Possible pneumonia #Asthma #GERD PLAN: -CT C/A/P review, pending official read. -Patient is improving with zofran, abx and supportive care -Continue current management -Obtain Stool cultures. Salmonella is going around in the community. -Continue clear liquid diet. Can advance tomorrow if no vomiting. -Continue PPI daily. -No planned endoscopic procedures - Date & Time Date: 04/28/18 Time: 17:01 <Clint Arndt - Last Filed: 04/28/18 18:26> Meds - Medications Medications: Current Medications Albuterol/Ipratropium (Duoneb 3 Mg/0.5 Mg (3 Ml) Ud) 3 ml INH RQ6 [facility] Last Admin: 04/28/18 13:51 Dose: 3 ml Enoxaparin Sodium (Lovenox) 40 mg SC DAILY [facility] Last Admin: 04/28/18 09:35 Dose: 40 mg Azithromycin 500 mg/ Sodium (Chloride) 250 mls @ 250 mls/hr IVPB DAILY@1300 [facility] PRN Reason: Protocol Last Admin: 04/28/18 12:09 Dose: 250 mls/hr Ceftriaxone Sodium 1 gm/ (Sodium Chloride) 100 mls @ 100 mls/hr IVPB DAILY@ 0700 [facility] PRN Reason: Protocol Last Admin: 04/28/18 06:10 Dose: 100 mls/hr Ketorolac Tromethamine (Toradol) 15 mg IVP Q8 PRN PRN Reason: Pain, moderate (4-7) Ondansetron HCl (Zofran Inj) 4 mg IVP Q6 PRN PRN Reason: Nausea/Vomiting Pantoprazole Sodium (Protonix Ec Tab) 40 mg PO DAILY [facility] Last Admin: 04/28/18 09:35 Dose: 40 mg Pneumococcal Polyvalent Vaccine (Pneumovax 23 Vaccine) 0.5 ml IM .ONCE ONE Stop: 04/29/18 10:01 Results - Vital Signs Recent Vital Signs: Last Vital Signs Temp 98.0 F 04/28/18 15:28 Pulse 75 04/28/18 15:28 Resp 20 04/28/18 15:28 BP 113/69 04/28/18 15:28 Pulse Ox 94 L 04/28/18 15:28 - Labs Result Diagrams: 04/28/18 11:36 04/28/18 11:30 Labs: Laboratory Results - last 24 hr 04/27/18 04/27/18 04/27/18 18:32 19:02 21:13 WBC RBC Hgb Hct MCV MCH MCHC RDW Plt Count MPV Puncture Site Lba pCO2 28 L pO2 94 HCO3 21.9 ABG pH 7.44 ABG Total CO2 19.9 L ABG O2 Saturation 98.3 H ABG Base Excess -3.9 L ABG Hemoglobin 12.5 ABG Carboxyhemoglobin 1.2 POC ABG HHb (Measured) 1.7 ABG Methemoglobin 0.9 Randall Test Pos A-a O2 Difference 21.0 Respiratory Index 0.2 Hgb O2 Saturation 96.3 FiO2 21.0 Sodium Potassium Chloride Carbon Dioxide Anion Gap BUN Creatinine Est GFR ( Amer) Est GFR (Non-Af Amer) Random Glucose Calcium Total Bilirubin AST ALT Alkaline Phosphatase Total Protein Albumin Globulin Albumin/Globulin Ratio Urine Color Yellow Urine Clarity Hazy Urine pH 5.0 Ur Specific [place] 1.029 Urine Protein 1+ H Urine Glucose (UA) Normal Urine Ketones 2+ H Urine Blood 1+ H Urine Nitrate Negative Urine Bilirubin Negative Urine Urobilinogen Normal Ur Leukocyte Esterase Neg Urine WBC (Auto) 3 Urine RBC (Auto) 13 H Ur Squamous Epith Cells 5 Urine Bacteria Occ H Urine HCG, Qual Negative Influenza Typ A,B (EIA) Negative for flu a/b 04/28/18 04/28/18 11:30 11:36 WBC 5.5 D RBC 4.37 Hgb 13.8 Hct 39.3 MCV 89.9 MCH 31.5 H MCHC 35.0 RDW 13.4 Plt Count 240 MPV 7.8 Puncture Site pCO2 pO2 HCO3 ABG pH ABG Total CO2 ABG O2 Saturation ABG Base Excess ABG Hemoglobin ABG Carboxyhemoglobin POC ABG HHb (Measured) ABG Methemoglobin Randall Test A-a O2 Difference Respiratory Index Hgb O2 Saturation FiO2 Sodium 143 Potassium 4.3 Chloride 106 Carbon Dioxide 26 Anion Gap 15 BUN 9 Creatinine 0.6 L Est GFR ( Amer) > 60 Est GFR (Non-Af Amer) > 60 Random Glucose 111 H Calcium 8.9 Total Bilirubin 0.4 AST 19 ALT 21 Alkaline Phosphatase 70 Total Protein 7.1 Albumin 3.6 Globulin 3.4 Albumin/Globulin Ratio 1.1 Urine Color Urine Clarity Urine pH Ur Specific [place] Urine Protein Urine Glucose (UA) Urine Ketones Urine Blood Urine Nitrate Urine Bilirubin Urine Urobilinogen Ur Leukocyte Esterase Urine WBC (Auto) Urine RBC (Auto) Ur Squamous Epith Cells Urine Bacteria Urine HCG, Qual Influenza Typ A,B (EIA) Attending/Attestation - Attestation I have personally seen and examined this patient.: Yes I have fully participated in the care of the patient.: Yes I have reviewed all pertinent clinical information: Yes Notes (Text): 04/28/18 18:22 Chart reviewed. The patient was interviewed and examined this evening. Agree with the above history and exam. Comfortable, non-toxic. Acute onset with negative personal, or family history for chronic gastrointestinal issues, including IBD. Assessment and recommendations, as outlined above, were discussed with Dr. Danielle. Discussed with the patient and and the nurse.
--- NOTE | 2018-04-28 17:31 | CT ---
Date of service: 04/27/2018 PROCEDURE: CT chest abdomen and pelvis without intravenous contrast. HISTORY: Cough the fever with upper abdominal pain, vomiting COMPARISON: Correlation made with prior pelvic ultrasound 03/11/2016. TECHNIQUE: Radiation dose: Total exam DLP = 1011.54 mGy-cm. This CT exam was performed using one or more of the following dose reduction techniques: Automated exposure control, adjustment of the mA and/or kV according to patient size, and/or use of iterative reconstruction technique. FINDINGS: Note that study is limited due to the lack of oral and circulating intravenous contrast material. CT CHEST WITHOUT CONTRAST: LUNGS: There are tree-in-bud opacity seen in the right upper mid middle and right lower lobes. . Less severe tree-in-bud opacities left upper lobe as well. . Mild diffuse peribronchial thickening changes. Rule out sequela of reactive/inflammatory airway disease and or viral illness. Tiny on approximately 3 mm nodule of right upper lobe anteriorly seen on axial series 4, image 46 MEDIASTINUM: Unremarkable. Normal caliber aorta and pulmonary arterial trunk. Normal size heart. LYMPH NODES: There are multiple small to medium sized mediastinal lymph nodes present, one of which in the right paratracheal region measuring 12.4 mm exhibits low-attenuation center (likely fatty center). . Subcarinal lymph nodes are also present. Evaluation for hilar adenopathy is limited due to the lack of circulating intravenous contrast material. PLEURA: Unremarkable. No pneumothorax. No pleural fluid. BONES: Unremarkable. OTHER FINDINGS: None. CT ABDOMEN AND PELVIS: LIVER: Unremarkable. No gross lesion or ductal dilatation. GALLBLADDER AND BILE DUCTS: Unremarkable. PANCREAS: Unremarkable. No gross lesion or ductal dilatation. SPLEEN: Unremarkable. ADRENALS: Unremarkable. No mass. KIDNEYS AND URETERS: Unremarkable. No hydronephrosis. No solid mass. VASCULATURE: Unremarkable. No aortic aneurysm. BOWEL: Unremarkable. No obstruction. No gross mural thickening. APPENDIX: Normal appendix. PERITONEUM: Unremarkable. No free fluid. No free air. Small fat containing umbilical hernia. LYMPH NODES: Unremarkable. No enlarged lymph nodes. BLADDER: Unremarkable. REPRODUCTIVE: Note is made of an approximately 4.2 x 4.1 x 4.0 cm mixed attenuation mass containing solid components fatty components and and chunk like calcification in the right adnexal region that is most consistent with a dermoid cyst. Possible small 2 cm left adnexal cyst. BONES: No acute fracture. OTHER FINDINGS: None. IMPRESSION: Limited study as described above. The Tree-in-bud opacities seen throughout the right lung as well as left upper lobe. Multiple small to borderline mediastinal lymph nodes. Dermoid cyst the right adnexal region. . Probable small left adnexal cyst.
--- NOTE | 2018-04-28 19:46 | CP.PCM.PN ---
Subjective - Date & Time of Evaluation Date of Evaluation: 04/28/18 Time of Evaluation: 09:30 - Subjective Subjective: clinically same Objective - Vital Signs/Intake and Output Vital Signs (last 24 hours): Temp Pulse Resp BP Pulse Ox 98.0 F 75 20 113/69 94 L 04/28/18 15:28 04/28/18 15:28 04/28/18 15:28 04/28/18 15:28 04/28/18 15:28 - Medications Medications: Current Medications Albuterol/Ipratropium (Duoneb 3 Mg/0.5 Mg (3 Ml) Ud) 3 ml INH RQ6 [facility] Last Admin: 04/28/18 13:51 Dose: 3 ml Enoxaparin Sodium (Lovenox) 40 mg SC DAILY [facility] Last Admin: 04/28/18 09:35 Dose: 40 mg Azithromycin 500 mg/ Sodium (Chloride) 250 mls @ 250 mls/hr IVPB DAILY@1300 [facility] PRN Reason: Protocol Last Admin: 04/28/18 12:09 Dose: 250 mls/hr Ceftriaxone Sodium 1 gm/ (Sodium Chloride) 100 mls @ 100 mls/hr IVPB DAILY@ 0700 [facility] PRN Reason: Protocol Last Admin: 04/28/18 06:10 Dose: 100 mls/hr Ketorolac Tromethamine (Toradol) 15 mg IVP Q8 PRN PRN Reason: Pain, moderate (4-7) Ondansetron HCl (Zofran Inj) 4 mg IVP Q6 PRN PRN Reason: Nausea/Vomiting Pantoprazole Sodium (Protonix Ec Tab) 40 mg PO DAILY [facility] Last Admin: 04/28/18 09:35 Dose: 40 mg Pneumococcal Polyvalent Vaccine (Pneumovax 23 Vaccine) 0.5 ml IM .ONCE ONE Stop: 04/29/18 10:01 - Labs Labs: 04/28/18 11:36 04/28/18 11:30 - Constitutional Appears: Well - Head Exam Head Exam: ATRAUMATIC, NORMAL INSPECTION, NORMOCEPHALIC - Eye Exam Eye Exam: EOMI, Normal appearance, PERRL Pupil Exam: NORMAL ACCOMODATION, PERRL - ENT Exam ENT Exam: Mucous Membranes Moist, Normal Exam - Neck Exam Neck Exam: Full ROM, Normal Inspection. absent: Lymphadenopathy - Respiratory Exam Respiratory Exam: Decreased Breath Sounds - Cardiovascular Exam Cardiovascular Exam: REGULAR RHYTHM, +S1, +S2 - GI/Abdominal Exam GI & Abdominal Exam: Soft, Diminished Bowel Sounds - Rectal Exam Rectal Exam: Deferred
--- NOTE | 2018-04-28 22:26 | CP.PCM.CON ---
History of Present Illness - History of Present Illness History of Present Illness: CHART REVIEWED. PT SEEN AND EXAMINED 22 YO W FEMALE WITH A HX ASTHMA SINCE CHILDHOOD, ADM WITH INCREASED MOD-SEVERE COUGH X 1 WK., +YELLOW SPUTUM, STREAKY HEMOPTYSIS X1 +N/V +DIARRHEA +FEVER. NO RELIEF WITH HOME NEB. NO ADM FOR ASTHMA EXAC. QUIT SMOKING 2 YRS AGO. SEEN IN ER 4 DAYS AGO AND RELEASED ON LEVAQUIN PO., UNABLE TO TOLERATE DUE TO +N/V. RECENT PPD NEG. Review of Systems - Review of Systems All systems: reviewed and no additional remarkable complaints except - Constitutional Constitutional: Fever. absent: Chills, Night Sweats - EENT Eyes: absent: Change in Vision Ears: absent: Ear Pain Nose/Mouth/Throat: absent: Nasal Congestion - Cardiovascular Cardiovascular: absent: Chest Pain - Respiratory Respiratory: Cough, Dyspnea, Wheezing, Chest Congestion, Excessive Mucous Production, Change in Mucous Color - Gastrointestinal Gastrointestinal: Diarrhea, Nausea, Vomiting - Genitourinary Genitourinary: absent: Difficulty Urinating - Musculoskeletal Musculoskeletal: absent: Back Pain - Integumentary Integumentary: absent: New Lesions - Neurological Neurological: absent: Confusion, Focal Weakness - Psychiatric Psychiatric: absent: Anxiety - Endocrine Endocrine: absent: Change in Body Appearance - Hematologic/Lymphatic Hematologic: absent: Lymphadenopathy Past Patient History - Infectious Disease Hx of Infectious Diseases: None - Past Medical History & Family History Past Medical History?: Yes Pertinent Family History: +ASTHMA - Past Social History Smoking Status: Never Smoked Chewing Tobacco Use: No Cigar Use: No Alcohol: None Drugs: Denies - CARDIAC Hx Cardiac Disorders: No - PULMONARY Hx Respiratory Disorders: Yes Hx Asthma: Yes - NEUROLOGICAL Hx Neurological Disorder: No - HEENT Hx HEENT Problems: No - RENAL Hx Chronic Kidney Disease: No - ENDOCRINE/METABOLIC Hx Endocrine Disorders: No - HEMATOLOGICAL/ONCOLOGICAL Hx Blood Disorders: No - INTEGUMENTARY Hx Dermatological Problems: No - MUSCULOSKELETAL/RHEUMATOLOGICAL Hx Musculoskeletal Disorders: No - GASTROINTESTINAL Hx Gastrointestinal Disorders: No - GENITOURINARY/GYNECOLOGICAL Hx Genitourinary Disorders: No - PSYCHIATRIC Hx Psychophysiologic Disorder: Yes Hx Anxiety: Yes Hx Substance Use: No - SURGICAL HISTORY Hx Surgeries: Yes Hx Section: Yes Hx Dilation and Curettage: Yes - ANESTHESIA Hx Anesthesia: Yes Hx Anesthesia Reactions: No Hx Malignant Hyperthermia: No Meds Allergies/Adverse Reactions: Allergies Allergy/AdvReac Type Severity Reaction Status Date / Time latex Allergy Verified 03/26/18 17:48 ANIMAL FUR Allergy Uncoded 03/26/18 17:48 DUST Allergy Uncoded 03/26/18 17:48 POLLEN Allergy Uncoded 03/26/18 17:48 - Medications Medications: Current Medications Albuterol/Ipratropium (Duoneb 3 Mg/0.5 Mg (3 Ml) Ud) 3 ml INH RQ6 [facility] Last Admin: 04/28/18 19:20 Dose: 3 ml Enoxaparin Sodium (Lovenox) 40 mg SC DAILY [facility] Last Admin: 04/28/18 09:35 Dose: 40 mg Azithromycin 500 mg/ Sodium (Chloride) 250 mls @ 250 mls/hr IVPB DAILY@1300 [facility] PRN Reason: Protocol Last Admin: 04/28/18 12:09 Dose: 250 mls/hr Ceftriaxone Sodium 1 gm/ (Sodium Chloride) 100 mls @ 100 mls/hr IVPB DAILY@ 0700 [facility] PRN Reason: Protocol Last Admin: 04/28/18 06:10 Dose: 100 mls/hr Ketorolac Tromethamine (Toradol) 15 mg IVP Q8 PRN PRN Reason: Pain, moderate (4-7) Ondansetron HCl (Zofran Inj) 4 mg IVP Q6 PRN PRN Reason: Nausea/Vomiting Pantoprazole Sodium (Protonix Ec Tab) 40 mg PO DAILY [facility] Last Admin: 04/28/18 09:35 Dose: 40 mg Pneumococcal Polyvalent Vaccine (Pneumovax 23 Vaccine) 0.5 ml IM .ONCE ONE Stop: 04/29/18 10:01 Physical Exam - Constitutional Appears: No Acute Distress - Head Exam Head Exam: ATRAUMATIC, NORMOCEPHALIC - Eye Exam Eye Exam: EOMI, Normal appearance - ENT Exam ENT Exam: Mucous Membranes Moist - Neck Exam Neck exam: Positive for: Normal Inspection - Respiratory Exam Respiratory Exam: Rhonchi, Wheezes. absent: Respiratory Distress - Cardiovascular Exam Cardiovascular Exam: RRR, +S1, +S2 - GI/Abdominal Exam GI & Abdominal Exam: Soft. absent: Tenderness Additional comments: OBESE - Rectal Exam Rectal Exam: Deferred - Extremities Exam Extremities exam: Negative for: calf tenderness, pedal edema - Back Exam Back exam: absent: CVA tenderness (L), CVA tenderness (R) - Neurological Exam Neurological exam: Alert, CN II-XII Intact, Oriented x3 - Psychiatric Exam Psychiatric exam: Normal Mood - Skin Skin Exam: Intact Results - Vital Signs Recent Vital Signs: Last Vital Signs Temp 98.0 F 04/28/18 15:28 Pulse 75 04/28/18 15:28 Resp 20 04/28/18 15:28 BP 113/69 04/28/18 15:28 Pulse Ox 94 L 04/28/18 15:28 - Labs Result Diagrams: 04/28/18 11:36 04/28/18 11:30 Labs: Laboratory Results - last 24 hr 04/28/18 04/28/18 11:30 11:36 WBC 5.5 D RBC 4.37 Hgb 13.8 Hct 39.3 MCV 89.9 MCH 31.5 H MCHC 35.0 RDW 13.4 Plt Count 240 MPV 7.8 Sodium 143 Potassium 4.3 Chloride 106 Carbon Dioxide 26 Anion Gap 15 BUN 9 Creatinine 0.6 L Est GFR ( Amer) > 60 Est GFR (Non-Af Amer) > 60 Random Glucose 111 H Calcium 8.9 Total Bilirubin 0.4 AST 19 ALT 21 Alkaline Phosphatase 70 Total Protein 7.1 Albumin 3.6 Globulin 3.4 Albumin/Globulin Ratio 1.1 Assessment & Plan (1) Asthma Status: Acute (2) Obesity Status: Acute (3) GERD (gastroesophageal reflux disease) Status: Acute (4) Pneumonia Status: Acute - Assessment and Plan (Free Text) Assessment: 22 YO FEMALE WITH A HX MULT MED PROBS, ADM WITH FEVER, DYSPNEA + ASTHMA EXAC, WITH +BILAT PNA ON CXR., CXR REVIEWED. CT CHEST REVIEWED., R/O ATYPICAL.,? VIRAL. RECENT NEG TB EVAL, NO PROPHYLAXIS RECOMMENDED. ADEQ OXYGENATION., MONITOR O2 SAT. PULM TOILET., NEB BD, CONT EMPIRIC AB. PENDING CULT., GI EVAL NOTED. GI/ DVT PROPHYLAXIS. DISCUSSED WITH STAFF AT LENGTH.
[2018-04-29] MEDS: Albuterol-Ipratrop 3 mg / 0.5 (3 ml) UD INH SCH ×4 (02:15→20:03)
[2018-04-29] MEDS: Pantoprazole 40 mg EC Tab PO SCH (09:51)
[2018-04-29] MEDS: Enoxaparin 40 mg Syringe SC SCH (09:52)
[2018-04-29] MEDS ORDERED: Pneumococcal 23-Valent Vaccine IM ONE (10:00)
--- NOTE | 2018-04-29 12:13 | CP.PCM.PN ---
Subjective - Date & Time of Evaluation Date of Evaluation: 04/29/18 Time of Evaluation: 12:11 - Subjective Subjective: PT ALERT, +N/V. NO SOB. NO HEMOPTYSIS. TB SCREENING DONE January. 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 Objective - Vital Signs/Intake and Output Vital Signs (last 24 hours): Temp Pulse Resp BP Pulse Ox 98.3 F 66 20 122/82 96 04/29/18 07:00 04/29/18 07:00 04/29/18 07:00 04/29/18 07:00 04/29/18 07:00 - Medications Medications: Current Medications Albuterol/Ipratropium (Duoneb 3 Mg/0.5 Mg (3 Ml) Ud) 3 ml INH RQ6 [facility] Last Admin: 04/29/18 07:48 Dose: 3 ml Enoxaparin Sodium (Lovenox) 40 mg SC DAILY [facility] Last Admin: 04/29/18 09:52 Dose: 40 mg Azithromycin 500 mg/ Sodium (Chloride) 250 mls @ 250 mls/hr IVPB DAILY@1300 [facility] PRN Reason: Protocol Last Admin: 04/28/18 12:09 Dose: 250 mls/hr Ceftriaxone Sodium 1 gm/ (Sodium Chloride) 100 mls @ 100 mls/hr IVPB DAILY@ 0700 [facility] PRN Reason: Protocol Last Admin: 04/29/18 06:50 Dose: 100 mls/hr Ketorolac Tromethamine (Toradol) 15 mg IVP Q8 PRN PRN Reason: Pain, moderate (4-7) Ondansetron HCl (Zofran Inj) 4 mg IVP Q6 PRN PRN Reason: Nausea/Vomiting Last Admin: 04/29/18 10:24 Dose: 4 mg Pantoprazole Sodium (Protonix Ec Tab) 40 mg PO DAILY [facility] Last Admin: 04/29/18 09:51 Dose: 40 mg - Labs Labs: 04/28/18 11:36 04/28/18 11:30 - Constitutional Appears: No Acute Distress - Head Exam Head Exam: ATRAUMATIC, NORMOCEPHALIC - Eye Exam Eye Exam: EOMI, Normal appearance - ENT Exam ENT Exam: Mucous Membranes Moist - Neck Exam Neck Exam: Normal Inspection - Respiratory Exam Respiratory Exam: Rhonchi. absent: Accessory Muscle Use, Respiratory Distress - Cardiovascular Exam Cardiovascular Exam: RRR, +S1, +S2 - GI/Abdominal Exam GI & Abdominal Exam: Soft. absent: Tenderness - Rectal Exam Rectal Exam: Deferred - Extremities Exam Extremities Exam: absent: Calf Tenderness, Pedal Edema - Back Exam Back Exam: absent: CVA tenderness (L), CVA tenderness (R) - Neurological Exam Neurological Exam: Alert, Awake, CN II-XII Intact, Oriented x3 - Psychiatric Exam Psychiatric exam: Normal Mood - Skin Skin Exam: absent: Rash Assessment and Plan (1) Asthma Status: Acute (2) Obesity Status: Acute (3) GERD (gastroesophageal reflux disease) Status: Acute (4) Pneumonia Status: Acute - Assessment and Plan (Free Text) Assessment: RESP STATUS NO SIG CHANGE. AFEBRILE ON EMPIRIC AB., ? RECENT WORK IN HOSPITAL, CHECK [employer] X 3, RESP ISOLATION PENDING RESULTS. CONT NEB BD., MONITOR O2 SAT. CT CHEST REVIEWED. DISCUSSED WITH STAFF AT LENGTH.
[2018-04-29] MEDS: Azithromycin 500 MG in Sodium Chloride 0.9% 250 ML IVPB SCH (12:57)
--- NOTE | 2018-04-29 15:14 | CP.PCM.PN ---
<Enrique Danielle - Last Filed: 04/29/18 18:29> Subjective - Date & Time of Evaluation Date of Evaluation: 04/29/18 Time of Evaluation: 15:13 - Subjective Subjective: GI Fellow PGY4 She has improved of fever and diarrhea. She still has n/v. 2 episodes of vomiting today. Second episode was green. She tried a pancake today, but did not tolerate. 5pt ROS completed and negative except for above. Objective - Vital Signs/Intake and Output Vital Signs (last 24 hours): Temp Pulse Resp BP Pulse Ox 98.3 F 66 20 122/82 96 04/29/18 07:00 04/29/18 07:00 04/29/18 07:00 04/29/18 07:00 04/29/18 07:00 - Medications Medications: Current Medications Albuterol/Ipratropium (Duoneb 3 Mg/0.5 Mg (3 Ml) Ud) 3 ml INH RQ6 [facility] Last Admin: 04/29/18 13:40 Dose: 3 ml Enoxaparin Sodium (Lovenox) 40 mg SC DAILY [facility] Last Admin: 04/29/18 09:52 Dose: 40 mg Azithromycin 500 mg/ Sodium (Chloride) 250 mls @ 250 mls/hr IVPB DAILY@1300 [facility] PRN Reason: Protocol Last Admin: 04/29/18 12:57 Dose: 250 mls/hr Ceftriaxone Sodium 1 gm/ (Sodium Chloride) 100 mls @ 100 mls/hr IVPB DAILY@ 0700 [facility] PRN Reason: Protocol Last Admin: 04/29/18 06:50 Dose: 100 mls/hr Ketorolac Tromethamine (Toradol) 15 mg IVP Q8 PRN PRN Reason: Pain, moderate (4-7) Ondansetron HCl (Zofran Inj) 4 mg IVP Q6 PRN PRN Reason: Nausea/Vomiting Last Admin: 04/29/18 10:24 Dose: 4 mg Pantoprazole Sodium (Protonix Ec Tab) 40 mg PO DAILY [facility] Last Admin: 04/29/18 09:51 Dose: 40 mg - Labs Labs: 04/28/18 11:36 04/28/18 11:30 - Constitutional Appears: Non-toxic, No Acute Distress - Head Exam Head Exam: NORMAL INSPECTION - Eye Exam Eye Exam: Normal appearance - ENT Exam ENT Exam: Mucous Membranes Moist - Respiratory Exam Respiratory Exam: Clear to Ausculation Bilateral, Wheezes, NORMAL BREATHING PATTERN - Cardiovascular Exam Cardiovascular Exam: REGULAR RHYTHM - GI/Abdominal Exam GI & Abdominal Exam: Soft, Normal Bowel Sounds. absent: Tenderness - Extremities Exam Extremities Exam: Normal Inspection - Neurological Exam Neurological Exam: Alert, Awake, Normal Gait, Oriented x3 - Psychiatric Exam Psychiatric exam: Normal Affect, Normal Mood - Skin Skin Exam: Dry, Normal Color Assessment and Plan - Assessment and Plan (Free Text) Assessment: 22F with acute onset of fever, diarrhea, vomiting consistent with gastroenteritis #Gastroenteritis - bacterial vs viral #Possible pneumonia #Asthma #GERD PLAN: -CT C/A/P shows tree-in-bud opacities with mediastinal LAD -Patient is improving fever, diarrhea -Still with n/v -Continue current management -Obtain Stool cultures. Salmonella is going around in the community. -Change diet to 6 small meal. Reglan once and re-evaluate -Start carafate for 1 week to help with n/v -Continue PPI daily. -No planned endoscopic procedures <Clint Arndt - Last Filed: 04/29/18 19:46> Objective - Vital Signs/Intake and Output Vital Signs (last 24 hours): Temp Pulse Resp BP Pulse Ox 98.3 F 100 H 20 104/68 94 L 04/29/18 15:51 04/29/18 15:51 04/29/18 15:51 04/29/18 15:51 04/29/18 15:51 - Medications Medications: Current Medications Albuterol/Ipratropium (Duoneb 3 Mg/0.5 Mg (3 Ml) Ud) 3 ml INH RQ6 [facility] Last Admin: 04/29/18 13:40 Dose: 3 ml Enoxaparin Sodium (Lovenox) 40 mg SC DAILY [facility] Last Admin: 04/29/18 09:52 Dose: 40 mg Azithromycin 500 mg/ Sodium (Chloride) 250 mls @ 250 mls/hr IVPB DAILY@1300 [facility] PRN Reason: Protocol Last Admin: 04/29/18 12:57 Dose: 250 mls/hr Ceftriaxone Sodium 1 gm/ (Sodium Chloride) 100 mls @ 100 mls/hr IVPB DAILY@ 0700 [facility] PRN Reason: Protocol Last Admin: 04/29/18 06:50 Dose: 100 mls/hr Ketorolac Tromethamine (Toradol) 15 mg IVP Q8 PRN PRN Reason: Pain, moderate (4-7) Ondansetron HCl (Zofran Inj) 4 mg IVP Q6 PRN PRN Reason: Nausea/Vomiting Last Admin: 04/29/18 10:24 Dose: 4 mg Pantoprazole Sodium (Protonix Ec Tab) 40 mg PO DAILY [facility] Last Admin: 04/29/18 09:51 Dose: 40 mg Sucralfate (Carafate Oral Susp) 1 gm PO QID [facility] Stop: 05/03/18 23:59 - Labs Labs: 04/28/18 11:36 04/28/18 11:30 Attending/Attestation - Attestation I have personally seen and examined this patient.: Yes I have fully participated in the care of the patient.: Yes I have reviewed all pertinent clinical information, including history, physical exam and plan: Yes Notes (Text): 04/29/18 19:45 Chart reviewed. Patient interviewed and examined. Awake and alert. Diarrhea resolved. Agree with the findings on the exam. Assessment and recommendations, as documented above, were discussed with Dr. Danielle. Discussed with the pt' s nurse.
--- NOTE | 2018-04-29 18:59 | CP.PCM.PN ---
Subjective - Date & Time of Evaluation Date of Evaluation: 04/29/18 Time of Evaluation: 09:30 - Subjective Subjective: clinically same Objective - Vital Signs/Intake and Output Vital Signs (last 24 hours): Temp Pulse Resp BP Pulse Ox 98.3 F 100 H 20 104/68 94 L 04/29/18 15:51 04/29/18 15:51 04/29/18 15:51 04/29/18 15:51 04/29/18 15:51 - Medications Medications: Current Medications Albuterol/Ipratropium (Duoneb 3 Mg/0.5 Mg (3 Ml) Ud) 3 ml INH RQ6 [facility] Last Admin: 04/29/18 13:40 Dose: 3 ml Enoxaparin Sodium (Lovenox) 40 mg SC DAILY [facility] Last Admin: 04/29/18 09:52 Dose: 40 mg Azithromycin 500 mg/ Sodium (Chloride) 250 mls @ 250 mls/hr IVPB DAILY@1300 [facility] PRN Reason: Protocol Last Admin: 04/29/18 12:57 Dose: 250 mls/hr Ceftriaxone Sodium 1 gm/ (Sodium Chloride) 100 mls @ 100 mls/hr IVPB DAILY@ 0700 [facility] PRN Reason: Protocol Last Admin: 04/29/18 06:50 Dose: 100 mls/hr Ketorolac Tromethamine (Toradol) 15 mg IVP Q8 PRN PRN Reason: Pain, moderate (4-7) Ondansetron HCl (Zofran Inj) 4 mg IVP Q6 PRN PRN Reason: Nausea/Vomiting Last Admin: 04/29/18 10:24 Dose: 4 mg Pantoprazole Sodium (Protonix Ec Tab) 40 mg PO DAILY [facility] Last Admin: 04/29/18 09:51 Dose: 40 mg Sucralfate (Carafate Oral Susp) 1 gm PO QID [facility] Stop: 05/03/18 23:59 - Labs Labs: 04/28/18 11:36 04/28/18 11:30 - Constitutional Appears: Well - Head Exam Head Exam: ATRAUMATIC, NORMAL INSPECTION, NORMOCEPHALIC - Eye Exam Eye Exam: EOMI, Normal appearance, PERRL Pupil Exam: NORMAL ACCOMODATION, PERRL - ENT Exam ENT Exam: Mucous Membranes Moist, Normal Exam - Neck Exam Neck Exam: Full ROM, Normal Inspection. absent: Lymphadenopathy - Respiratory Exam Respiratory Exam: Decreased Breath Sounds - Cardiovascular Exam Cardiovascular Exam: REGULAR RHYTHM, +S1, +S2 - GI/Abdominal Exam GI & Abdominal Exam: Soft, Diminished Bowel Sounds - Rectal Exam Rectal Exam: Deferred
[2018-04-29] MEDS: Sucralfate 1 gm/10 ml Oral Susp UD PO SCH (22:27)
[2018-04-30] MEDS: Albuterol-Ipratrop 3 mg / 0.5 (3 ml) UD INH SCH ×4 (01:36→20:11)
[2018-04-30] MEDS: Enoxaparin 40 mg Syringe SC SCH (09:08)
[2018-04-30] MEDS: Pantoprazole 40 mg EC Tab PO SCH (09:08)
[2018-04-30] MEDS: Sucralfate 1 gm/10 ml Oral Susp UD PO SCH ×4 (09:08→21:17)
--- NOTE | 2018-04-30 09:43 | CP.PCM.PN ---
Subjective - Date & Time of Evaluation Date of Evaluation: 04/30/18 Time of Evaluation: 09:41 - Subjective Subjective: PT ALERT, FEELS BETTER., NO N/V TODAY. LESS COUGH. ROS; OTHERWISE NEG Objective - Vital Signs/Intake and Output Vital Signs (last 24 hours): Temp Pulse Resp BP Pulse Ox 98.1 F 99 H 20 137/77 96 04/30/18 08:19 04/30/18 08:19 04/30/18 08:19 04/30/18 08:19 04/30/18 08:19 - Medications Medications: Current Medications Albuterol/Ipratropium (Duoneb 3 Mg/0.5 Mg (3 Ml) Ud) 3 ml INH RQ6 [facility] Last Admin: 04/30/18 07:14 Dose: 3 ml Enoxaparin Sodium (Lovenox) 40 mg SC DAILY [facility] Last Admin: 04/30/18 09:08 Dose: Not Given Azithromycin 500 mg/ Sodium (Chloride) 250 mls @ 250 mls/hr IVPB DAILY@1300 [facility] PRN Reason: Protocol Last Admin: 04/29/18 12:57 Dose: 250 mls/hr Ceftriaxone Sodium 1 gm/ (Sodium Chloride) 100 mls @ 100 mls/hr IVPB DAILY@ 0700 [facility] PRN Reason: Protocol Last Admin: 04/30/18 07:42 Dose: 100 mls/hr Ondansetron HCl (Zofran Inj) 4 mg IVP Q6 PRN PRN Reason: Nausea/Vomiting Last Admin: 04/29/18 10:24 Dose: 4 mg Pantoprazole Sodium (Protonix Ec Tab) 40 mg PO DAILY [facility] Last Admin: 04/30/18 09:08 Dose: 40 mg Sucralfate (Carafate Oral Susp) 1 gm PO QID [facility] Stop: 05/03/18 23:59 Last Admin: 04/30/18 09:08 Dose: 1 gm - Labs Labs: 04/28/18 11:36 04/28/18 11:30 - Constitutional Appears: No Acute Distress - Head Exam Head Exam: ATRAUMATIC, NORMOCEPHALIC - Eye Exam Eye Exam: EOMI, Normal appearance - ENT Exam ENT Exam: Mucous Membranes Moist - Neck Exam Neck Exam: Normal Inspection - Respiratory Exam Respiratory Exam: Rhonchi. absent: Accessory Muscle Use, Respiratory Distress - Cardiovascular Exam Cardiovascular Exam: RRR, +S1, +S2 - GI/Abdominal Exam GI & Abdominal Exam: Soft. absent: Tenderness - Rectal Exam Rectal Exam: Deferred - Extremities Exam Extremities Exam: absent: Calf Tenderness, Pedal Edema - Back Exam Back Exam: absent: CVA tenderness (L), CVA tenderness (R) - Neurological Exam Neurological Exam: Alert, Awake, CN II-XII Intact, Oriented x3 - Psychiatric Exam Psychiatric exam: Normal Mood - Skin Skin Exam: absent: Rash Assessment and Plan (1) Asthma Status: Acute (2) Obesity Status: Acute (3) GERD (gastroesophageal reflux disease) Status: Acute (4) Pneumonia Status: Acute - Assessment and Plan (Free Text) Assessment: RESP STATUS IMPROVING. AFEBRILE ON EMPIRIC AB., CONT NEB BD., SPUTUM [employer]B PENDING. CXR REVIEWED. CT REVIEWED. TOLERATING PO DIET NOW. FOR ID EVAL. DISCUSSED WITH STAFF.
--- NOTE | 2018-04-30 11:59 | CP.PCM.PN ---
<Liliam Mejia - Last Filed: 04/30/18 11:57> Subjective - Date & Time of Evaluation Date of Evaluation: 04/30/18 Time of Evaluation: 11:57 - Subjective Subjective: Gastroenterology Fellow/PGY6 Progress Note Patient notes resolved vomiting. Tolerated regular diet for dinner. Notes resolved diarrhea with formed stool this morning. A 12-point review of systems negative except for as above. Objective - Vital Signs/Intake and Output Vital Signs (last 24 hours): Temp Pulse Resp BP Pulse Ox 98.1 F 99 H 20 137/77 96 04/30/18 08:19 04/30/18 08:19 04/30/18 08:19 04/30/18 08:19 04/30/18 08:19 - Medications Medications: Current Medications Albuterol/Ipratropium (Duoneb 3 Mg/0.5 Mg (3 Ml) Ud) 3 ml INH RQ6 [facility] Last Admin: 04/30/18 07:14 Dose: 3 ml Enoxaparin Sodium (Lovenox) 40 mg SC DAILY [facility] Last Admin: 04/30/18 09:08 Dose: Not Given Azithromycin 500 mg/ Sodium (Chloride) 250 mls @ 250 mls/hr IVPB DAILY@1300 [facility] PRN Reason: Protocol Last Admin: 04/29/18 12:57 Dose: 250 mls/hr Ceftriaxone Sodium 1 gm/ (Sodium Chloride) 100 mls @ 100 mls/hr IVPB DAILY@ 0700 [facility] PRN Reason: Protocol Last Admin: 04/30/18 07:42 Dose: 100 mls/hr Ondansetron HCl (Zofran Inj) 4 mg IVP Q6 PRN PRN Reason: Nausea/Vomiting Last Admin: 04/29/18 10:24 Dose: 4 mg Pantoprazole Sodium (Protonix Ec Tab) 40 mg PO DAILY [facility] Last Admin: 04/30/18 09:08 Dose: 40 mg Sucralfate (Carafate Oral Susp) 1 gm PO QID [facility] Stop: 05/03/18 23:59 Last Admin: 04/30/18 09:08 Dose: 1 gm - Labs Labs: 04/28/18 11:36 04/28/18 11:30 - Constitutional Appears: Non-toxic, No Acute Distress - Head Exam Head Exam: ATRAUMATIC, NORMOCEPHALIC - Eye Exam Eye Exam: EOMI, PERRL Pupil Exam: PERRL. absent: Miosis, Mydriatic - ENT Exam ENT Exam: Mucous Membranes Moist, Normal Oropharynx - Neck Exam Neck Exam: Full ROM, Normal Inspection - Respiratory Exam Respiratory Exam: Clear to Ausculation Bilateral. absent: Rales, Rhonchi, Wheezes - Cardiovascular Exam Cardiovascular Exam: RRR, +S1, +S2. absent: Gallop, Rubs - GI/Abdominal Exam GI & Abdominal Exam: Soft, Normal Bowel Sounds. absent: Distended, Firm, Guarding, Rigid, Tenderness, Organomegaly, Rebound - Extremities Exam Extremities Exam: Normal Inspection. absent: Pedal Edema - Neurological Exam Neurological Exam: Alert, Awake, Oriented x3 - Psychiatric Exam Psychiatric exam: Normal Affect, Normal Mood - Skin Skin Exam: Dry, Intact, Normal Color, Warm Assessment and Plan - Assessment and Plan (Free Text) Assessment: 22 year old female with PMH of asthma and reflux presenting with fever, diarrhea , and vomiting. Active treatment of CT C/A/P revealing tree-in-bud opacities with mediastinal lymphadenopathy and resolved gastroenteritis. No prior EGD or colonoscopy. Plan: -tolerating diet, resolved vomiting and diarrhea -formed stool today -continue PPI daily -ID and Pulmonology managing PNA with TB workup -thank you for opportunity to participate in the care of this patient, please contact with questions or concerns <Hu Bell - Last Filed: 04/30/18 16:23> Objective - Vital Signs/Intake and Output Vital Signs (last 24 hours): Temp Pulse Resp BP Pulse Ox 98.1 F 99 H 20 137/77 96 04/30/18 08:19 04/30/18 08:19 04/30/18 08:19 04/30/18 08:19 04/30/18 08:19 - Medications Medications: Current Medications Albuterol/Ipratropium (Duoneb 3 Mg/0.5 Mg (3 Ml) Ud) 3 ml INH RQ6 [facility] Last Admin: 04/30/18 13:54 Dose: 3 ml Enoxaparin Sodium (Lovenox) 40 mg SC DAILY [facility] Last Admin: 04/30/18 09:08 Dose: Not Given Azithromycin 500 mg/ Sodium (Chloride) 250 mls @ 250 mls/hr IVPB DAILY@1300 [facility] PRN Reason: Protocol Last Admin: 04/30/18 13:14 Dose: 250 mls/hr Ceftriaxone Sodium 1 gm/ (Sodium Chloride) 100 mls @ 100 mls/hr IVPB DAILY@ 0700 [facility] PRN Reason: Protocol Last Admin: 04/30/18 07:42 Dose: 100 mls/hr Ondansetron HCl (Zofran Inj) 4 mg IVP Q6 PRN PRN Reason: Nausea/Vomiting Last Admin: 04/29/18 10:24 Dose: 4 mg Pantoprazole Sodium (Protonix Ec Tab) 40 mg PO DAILY [facility] Last Admin: 04/30/18 09:08 Dose: 40 mg Sucralfate (Carafate Oral Susp) 1 gm PO QID [facility] Stop: 05/03/18 23:59 Last Admin: 04/30/18 13:14 Dose: 1 gm - Labs Labs: 04/28/18 11:36 04/28/18 11:30 Attending/Attestation - Attestation I have personally seen and examined this patient.: Yes I have fully participated in the care of the patient.: Yes I have reviewed all pertinent clinical information, including history, physical exam and plan: Yes Notes (Text): 04/30/18 16:22 I have seen and examined patient with GI fellow. No acute events overnight. Diarrhea and vomiting have now resolved, she is tolerating PO diet without any difficulty. Review of vitals from today are normal. Asthma Mediastinal adenopathy Vomiting, diarrhea - resolved, likely secondary to gastroenteritis - Diet as tolerated - Follow up ID/pulmonary recommendations regarding TB workup - No further planned GI intervention, will sign off case. Please reconsult as necessary, thank you.
[2018-04-30] MEDS: Azithromycin 500 MG in Sodium Chloride 0.9% 250 ML IVPB SCH (13:14)
--- NOTE | 2018-04-30 16:08 | CP.PCM.PN ---
Subjective - Date & Time of Evaluation Date of Evaluation: 04/30/18 Time of Evaluation: 09:15 - Subjective Subjective: clinically same Objective - Vital Signs/Intake and Output Vital Signs (last 24 hours): Temp Pulse Resp BP Pulse Ox 98.1 F 99 H 20 137/77 96 04/30/18 08:19 04/30/18 08:19 04/30/18 08:19 04/30/18 08:19 04/30/18 08:19 - Medications Medications: Current Medications Albuterol/Ipratropium (Duoneb 3 Mg/0.5 Mg (3 Ml) Ud) 3 ml INH RQ6 [facility] Last Admin: 04/30/18 13:54 Dose: 3 ml Enoxaparin Sodium (Lovenox) 40 mg SC DAILY [facility] Last Admin: 04/30/18 09:08 Dose: Not Given Azithromycin 500 mg/ Sodium (Chloride) 250 mls @ 250 mls/hr IVPB DAILY@1300 [facility] PRN Reason: Protocol Last Admin: 04/30/18 13:14 Dose: 250 mls/hr Ceftriaxone Sodium 1 gm/ (Sodium Chloride) 100 mls @ 100 mls/hr IVPB DAILY@ 0700 [facility] PRN Reason: Protocol Last Admin: 04/30/18 07:42 Dose: 100 mls/hr Ondansetron HCl (Zofran Inj) 4 mg IVP Q6 PRN PRN Reason: Nausea/Vomiting Last Admin: 04/29/18 10:24 Dose: 4 mg Pantoprazole Sodium (Protonix Ec Tab) 40 mg PO DAILY [facility] Last Admin: 04/30/18 09:08 Dose: 40 mg Sucralfate (Carafate Oral Susp) 1 gm PO QID [facility] Stop: 05/03/18 23:59 Last Admin: 04/30/18 13:14 Dose: 1 gm - Labs Labs: 04/28/18 11:36 04/28/18 11:30 - Constitutional Appears: Well - Head Exam Head Exam: ATRAUMATIC, NORMAL INSPECTION, NORMOCEPHALIC - Eye Exam Eye Exam: EOMI, Normal appearance, PERRL Pupil Exam: NORMAL ACCOMODATION, PERRL - ENT Exam ENT Exam: Mucous Membranes Moist, Normal Exam - Neck Exam Neck Exam: Full ROM, Normal Inspection. absent: Lymphadenopathy - Respiratory Exam Respiratory Exam: Decreased Breath Sounds - Cardiovascular Exam Cardiovascular Exam: REGULAR RHYTHM, +S1, +S2 - GI/Abdominal Exam GI & Abdominal Exam: Soft, Diminished Bowel Sounds - Rectal Exam Rectal Exam: Deferred Assessment and Plan - Assessment and Plan (Free Text) Plan: 22 year old female with PMH of asthma and reflux presenting with fever, diarrhea , and vomiting. Active treatment of CT C/A/P revealing tree-in-bud opacities with mediastinal lymphadenopathy and resolved gastroenteritis. Plan: -tolerating diet, resolved vomiting and diarrhea -formed stool today -continue PPI daily -ID and Pulmonology managing PNA with TB workup - Repeat sputum to r/o active TB.
--- NOTE | 2018-04-30 22:53 | CP.PCM.CON ---
History of Present Illness - History of Present Illness History of Present Illness: dictated Past Patient History - Infectious Disease Hx of Infectious Diseases: None - Past Medical History & Family History Past Medical History?: Yes - Past Social History Smoking Status: Never Smoked Chewing Tobacco Use: No Cigar Use: No Alcohol: None Drugs: Denies - CARDIAC Hx Cardiac Disorders: No - PULMONARY Hx Respiratory Disorders: Yes Hx Asthma: Yes - NEUROLOGICAL Hx Neurological Disorder: No - HEENT Hx HEENT Problems: No - RENAL Hx Chronic Kidney Disease: No - ENDOCRINE/METABOLIC Hx Endocrine Disorders: No - HEMATOLOGICAL/ONCOLOGICAL Hx Blood Disorders: No - INTEGUMENTARY Hx Dermatological Problems: No - MUSCULOSKELETAL/RHEUMATOLOGICAL Hx Musculoskeletal Disorders: No - GASTROINTESTINAL Hx Gastrointestinal Disorders: No - GENITOURINARY/GYNECOLOGICAL Hx Genitourinary Disorders: No - PSYCHIATRIC Hx Psychophysiologic Disorder: Yes Hx Anxiety: Yes Hx Substance Use: No - SURGICAL HISTORY Hx Surgeries: Yes Hx Section: Yes Hx Dilation and Curettage: Yes - ANESTHESIA Hx Anesthesia: Yes Hx Anesthesia Reactions: No Hx Malignant Hyperthermia: No Meds Allergies/Adverse Reactions: Allergies Allergy/AdvReac Type Severity Reaction Status Date / Time latex Allergy Verified 03/26/18 17:48 ANIMAL FUR Allergy Uncoded 03/26/18 17:48 DUST Allergy Uncoded 03/26/18 17:48 POLLEN Allergy Uncoded 03/26/18 17:48 - Medications Medications: Current Medications Albuterol/Ipratropium (Duoneb 3 Mg/0.5 Mg (3 Ml) Ud) 3 ml INH RQ6 [facility] Last Admin: 04/30/18 20:11 Dose: 3 ml Enoxaparin Sodium (Lovenox) 40 mg SC DAILY [facility] Last Admin: 04/30/18 09:08 Dose: Not Given Azithromycin 500 mg/ Sodium (Chloride) 250 mls @ 250 mls/hr IVPB DAILY@1300 [facility] PRN Reason: Protocol Last Admin: 04/30/18 13:14 Dose: 250 mls/hr Ceftriaxone Sodium 1 gm/ (Sodium Chloride) 100 mls @ 100 mls/hr IVPB DAILY@ 0700 [facility] PRN Reason: Protocol Last Admin: 04/30/18 07:42 Dose: 100 mls/hr Ondansetron HCl (Zofran Inj) 4 mg IVP Q6 PRN PRN Reason: Nausea/Vomiting Last Admin: 04/29/18 10:24 Dose: 4 mg Pantoprazole Sodium (Protonix Ec Tab) 40 mg PO DAILY [facility] Last Admin: 04/30/18 09:08 Dose: 40 mg Sucralfate (Carafate Oral Susp) 1 gm PO QID [facility] Stop: 05/03/18 23:59 Last Admin: 04/30/18 21:17 Dose: 1 gm Results - Vital Signs Recent Vital Signs: Last Vital Signs Temp 98.4 F 04/30/18 14:00 Pulse 81 04/30/18 14:00 Resp 20 04/30/18 14:00 BP 107/65 04/30/18 14:00 Pulse Ox 95 04/30/18 14:00 - Labs Result Diagrams: 04/28/18 11:36 04/28/18 11:30
[2018-05-01] MEDS: Albuterol-Ipratrop 3 mg / 0.5 (3 ml) UD INH SCH ×3 (01:55→14:05)
[2018-05-01 07:30] LABS: BASO % 0.5 % (0.0-2.0); EOS # 0.2 K/uL (0.0-0.7); EOS % 2.6 % (0.0-4.0); HEMOGLOBIN 14.1 g/dL (11.0-16.0); LYMPH # 2.7 K/uL (1.0-4.3); LYMPH % 42.9 % (20.0-40.0); MEAN CORPUSCULAR HEMOGLOBIN 32.6 pg (27.0-31.0); MEAN CORPUSCULAR HGB CONC 35.3 g/dL (33.0-37.0); MEAN PLATELET VOLUME 7.6 fL (7.2-11.7); MONO # 0.6 K/uL (0.0-0.8); MONO % 9.4 % (0.0-10.0); NEUT # 2.8 K/uL (1.8-7.0); NEUT % 44.6 % (50.0-75.0); RBC 4.32 Mil/uL (3.80-5.20); RED CELL DISTRIBUTION WIDTH 13.1 % (11.5-14.5); WHITE BLOOD COUNT 6.3 K/uL (4.8-10.8)
[2018-05-01 07:43] LABS: MEAN CELL VOLUME 92.4 fL (81.0-99.0)
[2018-05-01 07:52] LABS: ALB/GLOB RATIO 1.1 (1.0-2.1); ALBUMIN 3.9 g/dL (3.5-5.0); ALT/SGPT 20 U/L (9-52); AST/SGOT 17 U/L (14-36); BLOOD UREA NITROGEN 13 mg/dL (7-17); CALCIUM 9.2 mg/dl (8.6-10.4); GFR NON-AFRICAN AMERICAN > 60
[2018-05-01] MEDS: Pantoprazole 40 mg EC Tab PO SCH (09:11)
[2018-05-01] MEDS: Enoxaparin 40 mg Syringe SC SCH (09:11)
[2018-05-01] MEDS: Sucralfate 1 gm/10 ml Oral Susp UD PO SCH ×2 (09:11→14:25)
--- NOTE | 2018-05-01 10:14 | CON ---
Copied To: Louie Barreto MD Attending MD: Louie Barreto MD DATE: 04/30/2018 INFECTIOUS DISEASE CONSULT HISTORY OF PRESENT ILLNESS: She is a 22-year-old female. She was admitted on 04/28/2018 with history of asthma, gastroesophageal reflux disease. She came in with fever, vomiting, diarrhea. She also has history of asthma, was having fevers. After the family barbecue, she does not remember eating anything that would have caused that. She denies any recent travel. She had multiple episodes of vomiting and diarrhea. She also was coughing and she was seen by GI as well as seen by Pulmonary and she is in isolation at this time. She quit smoking 2 years ago and she took a nebulizer and was having fever, nausea, vomiting, also diarrhea, ended up coming to the hospital, had lofmxzbt-ej-bucwcm cough for one week and she had one episode of hemoptysis, hence she is admitted here. She was in the ER 4 days ago and was sent on Levaquin p.o. She was unable to tolerate due to nausea and vomiting. To Dr. 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 We have ordered a Gold QuantiFERON test at this time. She also was supposed to give sputum, which she has not given except for one. She says only once she had vomiting with blood, otherwise nothing. She is feeling a lot better right now. Denies any fever. Denies any ear, nose, or throat problems now. No chest congestion. No chest pain. She is still coughing though, and had some wheezing and feels little congestion, but she is not able to bring out any sputum now. Denies any diarrhea. No nausea, no vomiting now. No urinary symptoms. No back pain. No confusion. No psych problems. No endocrine problems. PAST MEDICAL HISTORY: Significant for asthma, for smoking, and for respiratory problems in the past. No neurological issues. No HEENT issues. No kidney problems. No diabetes. No blood disorders. No skin problems. No joint problems. Has no chronic GI problems and no chronic problems. She does have anxiety. Denies any substance abuse. She has history of surgery, history of , and history of D and C in the past. ALLERGIES: SHE IS ALLERGIC TO LATEX, ANIMAL FUR, DUST, AND POLLEN. SHE HAS A DOG, WHICH SHE SAYS, "MY DOG IS HYPOALLERGENIC WHATEVER THAT MEANS AND SHE SAYS HE HAS HAIR, BUT NO FUR. MEDICATIONS: She is on Rocephin at this time and she is on Rocephin, albuterol, Lovenox, and Zithromax. PHYSICAL EXAMINATION: VITAL SIGNS: I find her temperature is 98.4 today, pulse is 81, blood pressure 107/65, respirations are 20. HEENT: Head is atraumatic, normocephalic. Pupils are reacting to light. NECK: Supple. JVP is flat. LUNGS: Clear. No crackles or rales present. She has had some crackles and rhonchi and wheeze on both lungs, otherwise lungs are not clear as yet. HEART: S1, S2 are regular. ABDOMEN: Soft, nontender. No guarding, no rigidity present. EXTREMITIES: Have no edema, clubbing, or cyanosis. She has a CAT scan which showed tree-in-bud opacities with mediastinal lymphadenopathy. So at this time she does have acute infection of the lungs with acute pneumonia and she is also being screened for TB. Her labs are noted. White count is 5.5, hemoglobin 13.8, hematocrit 39.3, platelet count is 240. BUN is 9, creatinine 0.7. Serology shows her C. diff is negative. Influenza was negative, and so at this time she also had blood cultures, urine culture which are negative. I wanted to make sure the Gold QuantiFERON test was sent and I told her if she would give two more sputums and if they are negative on smears, we will let her go on oral antibiotics. We will follow. At this time, she only produced one AFB, and so we are waiting for it. She had a chest, abdomen, and pelvic CT, which shows she had GI symptoms also. I would do Mycoplasma and Legionella titers. There are multiple ciwku-rk-bhzszk-sized mediastinal lymph nodes, I know which is right paratracheal measuring 12.4, exhibits low attenuation center, likely fatty. She has lymph nodes and she had in the lung less severe tree-in-bud opacity, left upper lobe as well as some in the right upper, middle, and right lower lobe tree-in-bud opacities. So she has very diffuse infection bilaterally, bilateral pneumonia. I hope we have done HIV test and we would like to do an HIV test and also to make sure we do Legionella and mycoplasma and Strep pneumo and we will continue present treatment. Louie Barreto MD
--- NOTE | 2018-05-01 10:16 | CP.PCM.PN ---
Subjective - Date & Time of Evaluation Date of Evaluation: 05/01/18 Time of Evaluation: 10:13 - Subjective Subjective: PT ALERT , NO HEMOPTYISIS., NO SOB. EATING WELL. ROS ; OTHERWISE NEG Objective - Vital Signs/Intake and Output Vital Signs (last 24 hours): Temp Pulse Resp BP Pulse Ox 98.3 F 73 20 115/77 95 05/01/18 07:00 05/01/18 07:00 05/01/18 07:00 05/01/18 07:00 05/01/18 07:00 - Medications Medications: Current Medications Albuterol/Ipratropium (Duoneb 3 Mg/0.5 Mg (3 Ml) Ud) 3 ml INH RQ6 [facility] Last Admin: 05/01/18 08:06 Dose: 3 ml Enoxaparin Sodium (Lovenox) 40 mg SC DAILY [facility] Last Admin: 05/01/18 09:11 Dose: Not Given Azithromycin 500 mg/ Sodium (Chloride) 250 mls @ 250 mls/hr IVPB DAILY@1300 [facility] PRN Reason: Protocol Last Admin: 04/30/18 13:14 Dose: 250 mls/hr Ceftriaxone Sodium 1 gm/ (Sodium Chloride) 100 mls @ 100 mls/hr IVPB DAILY@ 0700 [facility] PRN Reason: Protocol Last Admin: 05/01/18 06:05 Dose: 100 mls/hr Ondansetron HCl (Zofran Inj) 4 mg IVP Q6 PRN PRN Reason: Nausea/Vomiting Last Admin: 04/29/18 10:24 Dose: 4 mg Pantoprazole Sodium (Protonix Ec Tab) 40 mg PO DAILY [facility] Last Admin: 05/01/18 09:11 Dose: 40 mg Sucralfate (Carafate Oral Susp) 1 gm PO QID [facility] Stop: 05/03/18 23:59 Last Admin: 05/01/18 09:11 Dose: 1 gm - Labs Labs: 05/01/18 07:34 05/01/18 07:13 - Constitutional Appears: No Acute Distress - Head Exam Head Exam: ATRAUMATIC, NORMOCEPHALIC - Eye Exam Eye Exam: EOMI, Normal appearance - ENT Exam ENT Exam: Mucous Membranes Moist - Neck Exam Neck Exam: Normal Inspection - Respiratory Exam Respiratory Exam: Decreased Breath Sounds, Rhonchi. absent: Accessory Muscle Use, Respiratory Distress - Cardiovascular Exam Cardiovascular Exam: RRR, +S1, +S2 - GI/Abdominal Exam GI & Abdominal Exam: Soft. absent: Tenderness - Rectal Exam Rectal Exam: Deferred - Extremities Exam Extremities Exam: absent: Calf Tenderness, Pedal Edema - Back Exam Back Exam: absent: CVA tenderness (L), CVA tenderness (R) - Neurological Exam Neurological Exam: Alert, Awake, CN II-XII Intact, Oriented x3 - Psychiatric Exam Psychiatric exam: Normal Mood - Skin Skin Exam: absent: Rash Assessment and Plan (1) Asthma Status: Acute (2) Obesity Status: Acute (3) GERD (gastroesophageal reflux disease) Status: Acute (4) Pneumonia Status: Acute - Assessment and Plan (Free Text) Assessment: RESP STATUS IMPROVING, HEMOPTYSIS RESOLVING., AFEBRILE ON AB. SPUTUM AFB PENDING., CXR REVIEWED. CONT PULM TOILET. NEB BD. MONITOR O2 SAT. ID EVAL NOTED. DISCUSSED WITH STAFF AT LENGTH.
--- NOTE | 2018-05-01 14:19 | CP.PCM.PN ---
Subjective - Date & Time of Evaluation Date of Evaluation: 05/01/18 Time of Evaluation: 14:00 - Subjective Subjective: dictated Objective - Vital Signs/Intake and Output Vital Signs (last 24 hours): Temp Pulse Resp BP Pulse Ox 98.3 F 73 20 115/77 95 05/01/18 07:00 05/01/18 07:00 05/01/18 07:00 05/01/18 07:00 05/01/18 07:00 - Medications Medications: Current Medications Albuterol/Ipratropium (Duoneb 3 Mg/0.5 Mg (3 Ml) Ud) 3 ml INH RQ6 [facility] Last Admin: 05/01/18 08:06 Dose: 3 ml Enoxaparin Sodium (Lovenox) 40 mg SC DAILY [facility] Last Admin: 05/01/18 09:11 Dose: Not Given Azithromycin 500 mg/ Sodium (Chloride) 250 mls @ 250 mls/hr IVPB DAILY@1300 [facility] PRN Reason: Protocol Last Admin: 04/30/18 13:14 Dose: 250 mls/hr Ceftriaxone Sodium 1 gm/ (Sodium Chloride) 100 mls @ 100 mls/hr IVPB DAILY@ 0700 [facility] PRN Reason: Protocol Last Admin: 05/01/18 06:05 Dose: 100 mls/hr Ondansetron HCl (Zofran Inj) 4 mg IVP Q6 [facility] PRN Reason: Nausea/Vomiting Last Admin: 04/29/18 10:24 Dose: 4 mg Pantoprazole Sodium (Protonix Ec Tab) 40 mg PO DAILY [facility] Last Admin: 05/01/18 09:11 Dose: 40 mg Sucralfate (Carafate Oral Susp) 1 gm PO QID [facility] Stop: 05/03/18 23:59 Last Admin: 05/01/18 09:11 Dose: 1 gm - Labs Labs: 05/01/18 07:34 05/01/18 07:13
[2018-05-01] MEDS: Azithromycin 500 MG in Sodium Chloride 0.9% 250 ML IVPB SCH (14:25)
[2018-05-01 16:02] VITALS: BP 108/73; PULSE 83; RESP 18; TEMP 98.1; O2SAT 96
[2018-05-01] MEDS ORDERED: Potassium Chloride 20 mEq ER Tab PO ONE (16:15)
--- NOTE | 2018-05-01 17:00 | CP.PCM.PN ---
Subjective - Date & Time of Evaluation Date of Evaluation: 05/01/18 Time of Evaluation: 14:00 - Subjective Subjective: [employer] NOTES Objective - Vital Signs/Intake and Output Vital Signs (last 24 hours): Temp Pulse Resp BP Pulse Ox 98.1 F 83 18 108/73 96 05/01/18 15:40 05/01/18 15:40 05/01/18 15:40 05/01/18 15:40 05/01/18 15:40 - Medications Medications: Current Medications Albuterol/Ipratropium (Duoneb 3 Mg/0.5 Mg (3 Ml) Ud) 3 ml INH RQ6 [facility] [place] Last Admin: 05/01/18 14:05 Dose: 3 ml Enoxaparin Sodium (Lovenox) 40 mg SC DAILY [facility] [place] Last Admin: 05/01/18 09:11 Dose: Not Given Azithromycin 500 mg/ Sodium (Chloride) 250 mls @ 250 mls/hr IVPB DAILY@1300 [facility] PRN Reason: Protocol Last Admin: 05/01/18 14:25 Dose: 250 mls/hr Ceftriaxone Sodium 1 gm/ (Sodium Chloride) 100 mls @ 100 mls/hr IVPB DAILY@ 0700 [facility] PRN Reason: Protocol Last Admin: 05/01/18 06:05 Dose: 100 mls/hr Ondansetron HCl (Zofran Inj) 4 mg IVP Q6 PRN PRN Reason: Nausea/Vomiting Last Admin: 04/29/18 10:24 Dose: 4 mg Pantoprazole Sodium (Protonix Ec Tab) 40 mg PO DAILY [facility] [place] Last Admin: 05/01/18 09:11 Dose: 40 mg Sucralfate (Carafate Oral Susp) 1 gm PO QID [facility] [place] Stop: 05/03/18 23:59 Last Admin: 05/01/18 14:25 Dose: 1 gm - Labs Labs: 05/01/18 07:34 05/01/18 07:13 Assessment and Plan - Assessment and Plan (Free Text) Assessment: A/P
--- NOTE | 2018-05-02 05:16 | PN ---
Copied To: Louie Barreto MD Attending MD: Louie Barreto MD DATE: 05/01/2018 INFECTIOUS DISEASE FOLLOWUP NOTE SUBJECTIVE: The patient states she is feeling better. She states she gets the sputum, but I do not see any reports. She wants to go home. She is feeling a lot better. No hemoptysis, no shortness of breath, not bringing up much sputum, feels well, eating better. She has history of asthma. She was also seen by Pulmonary. Gold QuantiFERON test has been sent, and she did not want the PPD was positive. PHYSICAL EXAMINATION: VITAL SIGNS: T-max is 98.3, pulse 73, blood pressure 115/77, and respirations are 20. HEENT: Head is atraumatic, normocephalic. NECK: Supple. LUNGS: Clear. The patient has crackles present in both lungs. HEART: S1 and S2 regular. ABDOMEN: Soft and nontender. No guarding and no rigidity present. EXTREMITIES: Have no edema. ASSESSMENT AND PLAN: Chest CT was noted as both sides tree and bud with lot of inflammation bilaterally, and she probably has asthmatic bronchitis with pneumonia, I mean to say she has bilateral pneumonia and micro results are pending, but the patient wants to go home and she agrees to follow up with Dr. Prachi Paredes, and her Gold QuantiFERON and other studies are also pending, so I would suggest her to go on Levaquin for ten days and to repeat the x-ray as outpatient and to find out about her Gold QuantiFERON test and other tests that we have sent at this time as they are not available and I doubt that it is tuberculosis. Human immunodeficiency virus is negative. Clostridium difficile is negative, and flu is negative. I do not have any other reports on chart at this time. The patient does have pneumonia, history of asthma, and . Louie Barreto MD
== END 2018-05-01 17:03 | disposition home or self-care (01) | DRG 90 ==
LOC: C.ER 17:03 → C.9E 20:44 → C.5S 21:06
PROVIDERS: ADMIT Internal Medicine Nephrology; ATTEND Internal Medicine Nephrology
DX: J18.9 Pneumonia, unspecified organism (principal); K21.9 Gastro-esophageal reflux disease without esophagitis; K52.9 Noninfective gastroenteritis and colitis, unspecified; Z87.891 Personal history of nicotine dependence; J45.909 Unspecified asthma, uncomplicated; E66.9 Obesity, unspecified